=== PATIENT | female | born 1985 | race Caucasian/White ===

== ENCOUNTER 2019-12-16 07:37 | Outpatient (CLI) | payer OTHER, SELFPAY ==
--- NOTE | ~2019-12-16 | NM_ITS ---
. EXAMINATION: NM hepatobiliary w pharm DATE: 12/16/2019 10:22 INDICATION: Right upper quadrant abdominal pain. COMPARISON: CT abdomen and pelvis 11/04/2019 TECHNIQUE: 5.2 mCi Tc-99m mebrofenin (Choletec) was administered intravenously. Scintigraphic images of the abdomen were obtained for one hour. Then, 1.6 mcg sincalide (Kinevac) IV was administered, an d imaging was continued for 30 minutes. FINDINGS: There is normal clearance of radiotracer from the blood pool. There is homogeneous tracer u ptake by the liver. Activity progresses to the bowel and gallbladder. Gallbladder ejection fraction (GBEF) was 40%. Note that most patients with gallbladder dysfunction have GBEF < 35%, which overlaps with the broad normal range of 10-90%. IMPRESSION: 1. Normal hepatobiliary scintigraphy. Reviewed, dictated and finalized at location A. ER VEGETABLE
== END 2019-12-16 07:38 | disposition home or self-care (01) ==
LOC: CHSIMG 07:42
PROVIDERS: PCP Internal Medicine; Visit Provider Internal Medicine
DX: R10.11 Right upper quadrant pain (principal)
CPT/HCPCS: 78227; A9537; J2805

== ENCOUNTER 2020-01-05 09:08 | Outpatient (CLI) | payer OTHER, SELFPAY ==
--- NOTE | ~2020-01-05 | CT_ITS ---
EXAMINATION: CT abdomen pelvis w con EXAM DATE: 01/05/2020 10:18 INDICATION: Nausea vomiting diarrhea, postprandial. Symptoms for a few months. TECHNIQUE: Spiral CT of the abdomen and pelvis was performed following intravenous injection of 100 m L Omnipaque 350. Axial, coronal and sagittal images were reviewed. The dose-length product (DLP) fo r this examination was 532.60 mGy-cm. The exposure was tailored according to patient size (auto mA e xposure control), and iterative reconstruction (ASIR) was used as additional dose reduction technique . Comparison is made to prior examination from 11/04/2019. FINDINGS: The liver, spleen, adrenal glands and pancreas are unremarkable. Gallbladder is unremarkab le. No biliary obstruction. Portal and splenic veins are patent. Kidneys enhance symmetrically. T here is no hydronephrosis. The uterus and ovaries are unremarkable, no adnexal mass. The bladder i s unremarkable. There is no retroperitoneal or pelvic lymphadenopathy. The appendix is normal. The stomach and small bowel are unremarkable. There is moderate amount of c olonic stool. A No free intraperitoneal gas. The heart is normal in size. There are no pericardi al or pleural effusions. The lung bases are unremarkable. The bones are unremarkable. IMPRESSION: 1. No acute intra-abdominal findings. Reviewed, dictated and finalized at location A.
== END 2020-01-05 09:09 | disposition home or self-care (01) ==
PROVIDERS: PCP Internal Medicine; Visit Provider Internal Medicine
DX: R11.2 Nausea with vomiting, unspecified (principal)
CPT/HCPCS: 74177; Q9965

== ENCOUNTER → 2020-01-28 07:35 | Outpatient (CLI) | payer OTHER, SELFPAY ==
--- NOTE | ~2020-01-28 | US_ITS ---
US right upper quadrant DATE: 01/28/2020 08:23 INDICATION: Right upper quadrant abdominal pain, nausea. Elevated liver function tests. TECHNIQUE: Real-time imaging of liver, pancreas, gallbladder areas COMPARISON: 01/05/2020 CT abdomen pelvis with IV contrast material FINDINGS: No hepatic or pancreatic space-occupying mass lesion is evident. Normal hepatic portal veno us flow direction. There are numerous small filling defects averaging approximately 2 mm dimension in the dependent aspe ct of the gallbladder with associated shadowing. The gallbladder wall measures up to 4 mm thickness which they be consistent with either chronic or ac shannon cholecystitis. Negative sonographic Sánchez sign. IMPRESSION: Cholelithiasis and gallbladder wall thickening, which may be consistent with chronic or a cute cholecystitis cholecystitis. Consider radionuclide hepatobiliary scan if there is clinical suspi cion of acute cholecystitis. Reviewed, dictated and finalized at Location A. Reviewed, dictated and finalized at location A. IMPRESSION: Cholelithiasis and gallbladder wall thickening, which may be consis tent with chronic or acute cholecystitis cholecystitis. Consider radionuclide h epatobiliary scan if there is clinical suspicion of acute cholecystitis.
== END ==
DX: R74.8 Abnormal levels of other serum enzymes (principal); R10.11 Right upper quadrant pain; R11.0 Nausea; K80.20 Calculus of gallbladder without cholecystitis without obstruction
CPT/HCPCS: 76705

== ENCOUNTER 2020-04-01 05:35 | Emergency (ER) | payer MEDICAID, SELFPAY ==
[2020-04-01 05:35] VITALS: BP 122/68; PULSE 70; RESP 20; TEMP 36.2; O2SAT 100
[2020-04-01] MEDS: SODIUM CHLORIDE 0.9% IV 1,000 ML 999 ML IV CONT (06:19)
[2020-04-01] MEDS: ONDANSETRON INJ 4 MG/2 ML VIAL IV PUSH (06:19)
--- NOTE | 2020-04-01 06:20 | ED.ABDPAIN ---
HPI - Abdominal Pain General Chief Complaint: Abdominal Pain Stated Complaint: Gall Bladder Source: patient Mode of arrival: ambulatory Limitations: no limitations History of Present Illness HPI narrative: this is a 34-year-old female that is 14 weeks with a recently diagnosed history of gallbladder with gallstones was seeing a surgeon at [facility], and at that time was was given the option to have surgery after her . Currently the patient presents with right upper quadrant pain similar to her gallbladder attacks currently rating her pain at about a 5/10 with some nausea and episodes of vomiting with no diarrhea constipation no chest pain no fever chills. Patient did take Tylenol prior to arrival here in the emergency department and it is starting to take affect and decreasing her pain level. MD elicited complaint: abdominal pain Pertinent past history: other ( Gallstones) Onset (ago): month(s) Pain Consistency: intermittent Location: RUQ Severity: moderate Pain scale (0-10): 5 Quality: aching Radiation: RUQ Migration to: no migration Exacerbating factors: nothing Relieving factors: vomiting Associated symptoms: nausea and vomiting Related Data Allergies Allergy/AdvReac Type Severity Reaction Status Date / Time cefaclor Allergy Mild RASH Verified 02/24/17 19:44 Review of Systems Review of Systems: All systems reviewed & are unremarkable except as noted in HPI and below PMFSH Past Medical History Medical History History of gallstones PCO (polycystic ovaries) Social History Social History Smoking status: Never smoker Alcohol intake: never Course Course Emergency Course: patient appears more comfortable is receiving IV fluids and and IV Zofran, and heart tones were 136 beats per minute. Vital Signs Vital signs: Vital Signs Temperature 36.2 C L 04/01/20 05:35 Pulse Rate 70 04/01/20 05:35 Respiratory Rate 20 04/01/20 05:35 Blood Pressure 122/68 04/01/20 05:35 Pulse Oximetry 100 04/01/20 05:35 Temperature 36.2 C L 04/01/20 05:35 Pulse Rate 70 04/01/20 05:35 Respiratory Rate 20 04/01/20 05:35 Blood Pressure 122/68 04/01/20 05:35 Pulse Oximetry 100 04/01/20 05:35 Critical Care Time Critical Care Time Critical Care Time: No Discharge Plan Discharge Clinical Impression: History of gallstones Nausea & vomiting Qualifiers: Vomiting type: unspecified Vomiting Intractability: non-intractable Qualified Code(s): R11.2 - Nausea with vomiting, unspecified Patient Disposition: Home, Self-Care Condition: Stable Instructions: Antibiotic Form, Gallstones (ED), Acute Nausea and Vomiting (ED) Additional Instructions: Advised patient to take medicine as prescribed, follow-up with her surgeon at [facility], drink plenty of fluids and if symptoms persist or worsen he should return to the emergency department. Prescriptions: New ondansetron HCl [Zofran] 4 mg tablet 4 mg PO Q6H PRN (Reason: nausea and vomiting) Qty: 10 RF: 0 No Action ondansetron HCl [Zofran] 4 mg tablet 4 mg PO Q6H PRN (Reason: nausea and vomiting) Qty: 6 RF: 0 Follow-up/Referrals: Garry Pate MD [Primary Care Provider] - Stand Alone Forms: Work/School Release IP Time of Disposition: 07:02
[2020-04-01 06:29] LABS: Hematocrit 32.4 % (35.0-49.0); Hemoglobin 11.6 g/dL (12.0-15.0); Mean Corpuscular HGB Conc 35.8 g/dL (32.0-36.0); Mean Corpuscular Hemoglobin 30.3 pg (27.0-31.0); Mean Corpuscular Volume 84.6 fL (78.0-102.0); Mean Platelet Volume 9.8 fl (9.2-11.8); Platelet Count Result 230 K/mm3 (150-420); Red Blood Count 3.83 M/mm3 (4.20-5.40); Red Cell Distribution Width 12.7 % (11.6-14.4); White Blood Count 6.9 K/mm3 (4.8-10.8)
[2020-04-01 06:55] LABS: Alanine Aminotransferase 198 U/L (14-59); Albumin Level 2.9 g/dL (3.4-5.0); Alkaline Phosphatase 90 U/L (46-116); Anion Gap 11.6 mmol/L (7-16); Aspartate Amino Transferase 280 U/L (15-37); Bilirubin,Total 2.6 mg/dL (0.00-1.00); Blood Urea Nitrogen 6 mg/dL (7-18); Calcium 8.4 mg/dL (8.5-10.1); Carbon Dioxide 25 mmol/L (21-32); Chloride 102 mmol/L (98-108); Estimated CRCL calculation 111 ml/min; Estimated Glomerular Filt Rate > 60; Glucose 81 mg/dL (70-99); Osmolality Calculated 276 mOsm/kg (285-295); Potassium 3.6 mmol/L (3.5-5.1); Sodium 135 mmol/L (136-145); Total Protein 6.6 g/dL (6.4-8.2)
[2020-04-01 07:10] VITALS: BP 106/56; PULSE 72; RESP 20; O2SAT 97
== END 2020-04-01 07:11 | disposition home or self-care (01) ==
PROVIDERS: Emergency Provider Emergency Medicine; PCP Internal Medicine
DX: K80.80 Other cholelithiasis without obstruction (principal); R11.2 Nausea with vomiting, unspecified
CPT/HCPCS: 36415; 80053; 85027; 96361; 96374; 99283; 99284; J2405; J7030

== ENCOUNTER 2020-04-02 | Emergency (ER) | payer MEDICAID, SELFPAY ==
--- NOTE | 2020-04-02 00:09 | ED.ABDPAIN ---
HPI - Abdominal Pain General Chief Complaint: Unspecified Stated Complaint: Gallbladder Problems Time Seen by Provider: 04/02/20 00:17 Source: patient Mode of arrival: ambulatory Limitations: no limitations History of Present Illness HPI narrative: 34-year-old woman in her 14th week of comes in today complaining of bilateral flank pain. Patient states that started 2 days ago and was associated with nausea and vomiting at onset. She was seen here this morning and given IV fluids and ondansetron which improved her symptoms and she was unable to follow-up with her OB Gyne doctor today. She states her pain is gotten worse over the course of the evening. She states that she has had no vaginal bleeding but has her typical creamy vaginal discharge. she states the pain is worse when she takes deep breath. She had dysuria 2 days ago but none since. She denies hematuria, diarrhea, rash, fever, chills, cough, cold symptoms, chest pain and injury. MD elicited complaint: abdominal pain Pertinent past history: other ( History of gallstones) Onset (ago): day(s) (2) Pain Consistency: intermittent Location: L flank, R flank and suprapubic Severity: moderate Quality: sharp Radiation: none Migration to: no migration Exacerbating factors: other ( worse with taking a deep breath.) Relieving factors: nothing Associated symptoms: nausea, vomiting and dysuria Related Data Date of Last Menstrual Period: 12/26/19 Patient : Yes Home Medications Medication Instructions Recorded Confirmed acetaminophen [Tylenol Extra 500 mg PO Q6H PRN 04/02/20 04/02/20 Strength] phenazopyridine [Azo Urinary Pain 95 mg PO TID PRN 04/02/20 04/02/20 Relief] Allergies Allergy/AdvReac Type Severity Reaction Status Date / Time cefaclor Allergy Mild RASH Verified 02/24/17 19:44 Review of Systems Constitutional: Constitutional: Denies chills, Denies fever(s) and Denies weakness Eyes: Eyes: Denies change in vision and Denies photophobia ENT: Denies dysphagia, Denies nasal congestion and Denies sore throat Cardiovascular: Cardiovascular: Denies chest pain and Denies radiating jaw, neck or arm pain Respiratory: Respiratory: Denies cough, Denies dyspnea and Denies wheezing Gastrointestinal: Gastrointestinal: Reports as per HPI, Reports abdominal pain, Reports constipation, Denies diarrhea, Reports nausea and Reports vomiting Genitourinary: Genitourinary: Denies hematuria, Denies nocturia, Reports dysuria, Reports flank pain and Denies urinary incontinence Musculoskeletal: Musculoskeletal: Denies arthralgias and Denies joint swelling Integumentary/Breasts: Skin/Breast: Denies pruritus, Denies erythema and Denies rash Neurologic: Denies vertigo, Denies dizziness, Denies syncope, Denies headache(s), Denies focal weakness and Denies numbness Hematologic/Lymphatic: Hematologic/Lymphatic: Denies easy bleeding and Denies easy bruising Allergic/Immunologic: Allergic/Immunologic: Denies lip swelling and Denies wheezing PMFSH Past Medical History Medical History (Updated 04/02/20 @ 02:03 by Herson Jorge MD) Graves disease History of gallstones PCO (polycystic ovaries) Social History Social History Smoking status: Never smoker Alcohol intake: never Gender identity (if verbalized by the patient): Female Sexual Orientation (if Verbalized by the Patient): Straight or Heterosexual Exam Const: General: healthy appearing and alert Nutritional Appearance: obese Orientation/consciousness: patient oriented x3 Limitations: no limitations Other: Moderate acute distress. HENMT: Ears: external ears normal, TM's normal bilaterally and EAC's normal Mouth: Yes moist mucous membranes Throat: posterior oropharynx normal Eyes: Conjunctivae: conjunctivae normal Pupils: Equal, round and reactive pupils present EOM: EOMs intact bilaterally Direct Ophthalmoscopy: No
[2020-04-02 00:10] VITALS: BP 129/80; PULSE 64; RESP 18; TEMP 36.4; O2SAT 100
--- NOTE | 2020-04-02 00:31 | PC.NURSE ---
no nausea, no vomitting no diarrhea.
--- NOTE | 2020-04-02 00:42 | PC.NURSE ---
laughing talking to staff & on cellphone
--- NOTE | 2020-04-02 00:57 | PC.NURSE ---
vaginal exam performed by
[2020-04-02 01:02] LABS: Basophils Absolute Auto 0.03 K/mm3 (0.00-0.10); Basophils Percent Auto 0.4 % (0.0-1.0); Eosinophils Absolute Auto 0.09 K/mm3 (0.02-0.50); Eosinophils Percent Auto 1.2 % (1.0-6.0); Hematocrit 34.2 % (35.0-49.0); Hemoglobin 11.9 g/dL (12.0-15.0); Immature Granulocyte Absolute 0.07 K/mm3 (0.00-0.00); Lymphocytes Absolute Auto 2.04 K/mm3 (1.10-4.50); Lymphocytes Percent Auto 28.2 % (18.0-42.0); Mean Corpuscular HGB Conc 34.8 g/dL (32.0-36.0); Mean Corpuscular Hemoglobin 29.8 pg (27.0-31.0); Mean Corpuscular Volume 85.7 fL (78.0-102.0); Mean Platelet Volume 9.9 fl (9.2-11.8); Monocytes Absolute Auto 0.47 K/mm3 (0.10-0.90); Monocytes Percent Auto 6.5 % (2.0-11.0); Neutrophils Absolute Auto 4.5 K/mm3 (1.7-7.2); Neutrophils Percent Auto 62.7 % (50.0-70.0); Platelet Count Result 257 K/mm3 (150-420); Red Blood Count 3.99 M/mm3 (4.20-5.40); Red Cell Distribution Width 12.8 % (11.6-14.4); White Blood Count 7.2 K/mm3 (4.8-10.8)
[2020-04-02] MEDS: SODIUM CHLORIDE 0.9% IV 1,000 ML 999 ML IV CONT (01:06)
[2020-04-02 01:09] LABS: Add Urine Microscopic? YES; Appearance Urine Clear (Clear); Bilirubin Urine 2+ (Negative); Blood Urine Negative (Negative); Color Urine Yellow (Yellow); Glucose Urine UA Negative (Negative); Ketones Urine 1+ (Negative); Leukocyte Esterase Ur Trace LEU/UL (Negative); Nitrate Urine Negative (Negative); Protein Urine Negative (Negative)
[2020-04-02 01:20] LABS: Bacteria Urine 1+ /hpf; RBC Urine 0-2 /hpf (0-2); Squamous Epithelial Cell Urine Rare /hpf (Few); WBC Urine 0-3 /hpf (0-3)
[2020-04-02] MEDS: ACETAMINOPHEN 500 MG TABLET 1000 MG PO (01:25)
[2020-04-02 01:33] LABS: Alanine Aminotransferase 222 U/L (14-59); Alkaline Phosphatase 103 U/L (46-116); Anion Gap 14.5 mmol/L (7-16); Aspartate Amino Transferase 193 U/L (15-37); Bilirubin,Total 3.1 mg/dL (0.00-1.00); Blood Urea Nitrogen 6 mg/dL (7-18); Calcium 8.3 mg/dL (8.5-10.1); Carbon Dioxide 23 mmol/L (21-32); Chloride 102 mmol/L (98-108); Estimated CRCL calculation 86 ml/min; Estimated Glomerular Filt Rate > 60; GGT 95 U/L (5-55); Glucose 79 mg/dL (70-99); Lipase 122 U/L (73-393); Osmolality Calculated 278 mOsm/kg (285-295); Potassium 3.5 mmol/L (3.5-5.1); Sodium 136 mmol/L (136-145); Total Protein 6.8 g/dL (6.4-8.2)
[2020-04-02 01:39] LABS: Amylase 44 U/L (25-115); Beta HCG Quantitative > 1000.00 mIU/mL (0-6)
[2020-04-02 02:14] VITALS: BP 122/60; PULSE 77; RESP 18; TEMP 36.3
== END 2020-04-02 02:14 | disposition home or self-care (01) ==
PROVIDERS: Emergency Provider Emergency Medicine; PCP Internal Medicine
DX: R10.9 Unspecified abdominal pain (principal); Z33.1 Pregnant state, incidental; E80.6 Other disorders of bilirubin metabolism
CPT/HCPCS: 36415; 80053; 81001; 82150; 82977; 83690; 84702; 85025; 86850; 86900; 86901; 96360; 99283; 99284; J7030

== ENCOUNTER 2020-04-04 13:39 | Outpatient (CLI) | payer MEDICAID, SELFPAY ==
[2020-04-04 14:16] LABS: Hematocrit 34.5 % (37.0-47.0); Hemoglobin 12.4 g/dL (12.0-15.0); Mean Corpuscular HGB Conc 35.9 g/dl (32-36); Mean Corpuscular Volume 83.5 fl (80-100); Mean Platelet Volume 9.6 fl (7.4-10.4); Platelet Count Result 257 k/mm3 (150-375); Red Blood Count 4.13 M/mm3 (4.2-5.4); Red Cell Distribution Width 12.6 % (11.5-14.5); White Blood Count 8.1 K/mm3 (4.5-10.0)
[2020-04-04 14:27] LABS: Alanine Aminotransferase 117 U/L (4-35); Albumin Level 4.1 g/dL (3.5-5.1); Alkaline Phosphatase 128 U/L (38-126); Aspartate Amino Transferase 49 U/L (14-36); Bilirubin,Total 3.8 mg/dL (0.2-1.3); Blood Urea Nitrogen 9 mg/dL (7-17); Carbon Dioxide 22 mmol/L (22-30); Chloride 103 mmol/L (98-107); Estimated Glomerular Filt Rate > 60; Glucose 80 mg/dL (65-105); Sodium 134 mmol/L (137-145)
== END 2020-04-04 13:40 | disposition home or self-care (01) ==
PROVIDERS: PCP Internal Medicine; Visit Provider Obstetrics & Gynecology
DX: K80.20 Calculus of gallbladder without cholecystitis without obstruction (principal)
CPT/HCPCS: 36415; 80053; 85027

== ENCOUNTER 2020-05-06 15:20 | Emergency (ER) | payer BC, SELFPAY ==
--- NOTE | ~2020-05-06 | XR_ITS ---
EXAMINATION: XR chest 1V portable DATE: 05/06/2020 16:10 INDICATION: Cough. TECHNIQUE: A single frontal view of the chest was obtained. COMPARISON: Chest 2 views 04/06/2016, CT abdomen and pelvis 01/05/2020 FINDINGS: The chest demonstrates clear lungs without pneumonia, pleural effusion, or pneumothorax. Th e heart size is normal. IMPRESSION: 1. No acute cardiopulmonary disease. Reviewed, dictated and finalized at location A.
--- NOTE | ~2020-05-06 | US_ITS ---
US venous doppler [facility] DATE: 05/06/2020 16:33 INDICATION: Cough, shortness of breath. Recent surgery. Patient is . TECHNIQUE: Real-time and color flow imaging and Doppler analysis of the veins of the lower extremitie s COMPARISON: None FINDINGS: The greater saphenous veins are patent. There is spontaneous and phasic flow and normal aug mentation and color flow signal and normal compression of the deep veins of both lower extremities. IMPRESSION: Negative examination; no evidence of deep venous thrombosis of the lower extremities Reviewed, dictated and finalized at Location A. Reviewed, dictated and finalized at location A.
[2020-05-06 15:28] VITALS: BP 125/88; PULSE 96; RESP 18; TEMP 37.1; O2SAT 100
--- NOTE | 2020-05-06 15:33 | ED.GENADULT ---
HPI - General Adult General Chief complaint: Unspecified Stated complaint: Cough, 18 weeks preg Time Seen by Provider: 05/06/20 15:33 Source: patient Limitations: no limitations History of Present Illness HPI narrative: Patient is a G3, P2, currently 19 weeks who presents for evaluation of cough and shortness of breath. Patient states that she had cholecystectomy in March, bile stent removal about a week ago, and since that time has had a sore throat, at times a dry cough and some shortness of breath which occurs with exertion. No current chest pain or shortness of breath. No pleuritic pain. No leg swelling, calf pain, rash that she has noticed. No history of DVT. Patient reports feeling baby move, no loss of fluids, vaginal discharge, vaginal bleeding, pelvic pain or abdominal cramping., No fever, chills or hemoptysis. No rhinorrhea or congestion. Related Data Home Medications Medication Instructions Recorded Confirmed PNV cmb#95-ferrous fumarate-FA 1 tablet PO DAILY 05/06/20 [] Allergies Allergy/AdvReac Type Severity Reaction Status Date / Time cefaclor Allergy Mild RASH Verified 05/06/20 15:28 Review of Systems Review of Systems: Narrative: CONSTITUTIONAL: Denies fever CARDIOVASCULAR: Denies chest pain RESPIRATORY: Reports dry cough and shortness of breath. GASTROINTESTINAL: Denies abdominal pain SKIN: Denies rash MUSCULOSKELETAL: Denies back pain NEUROLOGIC: Denies headache [facility] Past Medical History Medical History Graves disease History of gallstones PCO (polycystic ovaries) Social History Social History Smoking status: Never smoker Alcohol intake: never Gender identity (if verbalized by the patient): Female Exam Narrative: Exam Narrative: GENERAL: Awake, alert, conversant HEAD: Normocephalic, atraumatic. EYES: PERRLA and EOMI. ENT: Nares clear, no rhinorrhea or epistaxis. Mucous membranes moist. NECK: Supple. CHEST: No respiratory distress, breathing even and non labored, no chest wall tenderness HEART: Regular rate, sinus rhythm ABDOMEN:Non distended, non tender, gravid uterus palpable at the umbilicus EXTREMITIES: Normal range of motion. No edema. SKIN: Warm, dry, no rash. NEURO:No focal deficits. Alert and oriented x3 Course Vital Signs Vital signs: Vital Signs Temperature 37.1 C 05/06/20 15:28 Pulse Rate 96 05/06/20 15:28 Respiratory Rate 18 05/06/20 15:28 Blood Pressure 125/88 05/06/20 15:28 Pulse Oximetry 100 05/06/20 15:28 Temperature 37.1 C 05/06/20 15:28 Pulse Rate 96 05/06/20 15:28 Respiratory Rate 20 05/06/20 15:38 Blood Pressure 125/88 05/06/20 15:28 Pulse Oximetry 100 05/06/20 15:28 Medical Decision Making MDM Narrative Medical decision making narrative: Patient presented for evaluation of cough, shortness of breath in the setting of and recent surgery last month. At the time of initial assessment, ABCs are intact and vital signs are stable. Physical exam is reassuring. No calf tenderness, edema, warmth or rash bilaterally. No reproducible chest wall pain. No pleuritic type symptoms. IV access obtained and labs are drawn. Laboratory results show a mild leukocytosis which can be seen in the setting of . No electrolyte derangement. No acute kidney injury. D-dimer is not above a critical cutoff level which makes PE very unlikely in a patient who is not tachycardic without hypoxemia. Bilateral lower extremity ultrasound is negative for DVT. Per adapted year's criteria, we do not need to obtain a CTA. Patient's chest x-ray shows no acute cardiopulmonary abnormality. Patient does not have any COVID type features. No myalgias, no productive cough, no congestion. 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 Patient was then discharged home. Differential Diagno
[2020-05-06 15:38] VITALS: RESP 20
--- NOTE | 2020-05-06 15:43 | ECG_ITS ---
Measurements Intervals [place] Rate: 83 P: 21 TX: 133 QRS: 9 QRSD: 93 T: 1 QT: 362 QTc: 426 Interpretive Statements SINUS RHYTHM BORDERLINE T WAVE ABNORMALITY- INFERIOR LEADS BORDERLINE ECG Electronically Signed On 05-06-2020 16:55:41 CDT by Rivera Meraz D.O.
[2020-05-06 16:00] LABS: Basophils Absolute Auto 0.1 K/mm3 (0.0-0.1); Basophils Percent Auto 0.4 % (0.2-1.2); Eosinophils Absolute Auto 0.1 K/mm3 (0-0.3); Eosinophils Percent Auto 1.2 % (0-4.4); Hematocrit 30.3 % (37.0-47.0); Hemoglobin 10.7 g/dL (12.0-15.0); Immature Granulocyte Absolute 0.08 K/mm3 (0.00-0.031); Immature Granulocyte Percent A 0.7 % (0-0.5); Lymphocytes Absolute Auto 2.03 K/mm3 (0.9-3.2); Lymphocytes Percent Auto 17.5 % (18.3-44.2); Mean Corpuscular HGB Conc 35.3 g/dl (32-36); Mean Corpuscular Hemoglobin 29.7 pg (26-34); Mean Corpuscular Volume 84.2 fl (80-100); Mean Platelet Volume 9.6 fl (7.4-10.4); Monocytes Absolute Auto 0.6 K/mm3 (0.1-0.6); Monocytes Percent Auto 5.4 % (2.6-8.5); Neutrophils Absolute Auto 8.7 K/mm3 (1.3-6.7); Neutrophils Percent Auto 74.8 % (45.5-73.1); Platelet Count Result 218 k/mm3 (150-375); Red Cell Distribution Width 13.2 % (11.5-14.5); White Blood Count 11.6 K/mm3 (4.5-10.0)
[2020-05-06 16:14] LABS: INR 1.2; Prothrombin Time 14.6 Seconds (11.1-14.7)
[2020-05-06 16:15] LABS: Partial Thromboplastin Time 30.6 SECONDS (22.3-36.8)
[2020-05-06 16:23] LABS: Alanine Aminotransferase 10 U/L (4-35); Albumin Level 3.6 g/dL (3.5-5.1); Alkaline Phosphatase 69 U/L (38-126); Aspartate Amino Transferase 16 U/L (14-36); Bilirubin,Total 0.2 mg/dL (0.2-1.3); Blood Urea Nitrogen 8 mg/dL (7-17); Calcium 8.7 mg/dL (8.4-10.2); Carbon Dioxide 22 mmol/L (22-30); Chloride 106 mmol/L (98-107); Estimated CRCL calculation 156 ml/min; Estimated Glomerular Filt Rate > 60; Glucose 101 mg/dL (65-105); Potassium 3.5 mmol/L (3.4-5.0); Sodium 134 mmol/L (137-145)
[2020-05-06 16:34] LABS: NT Pro B Type Natriuretic Pept 70 PG/ML (5-100); Troponin I < 0.012 ng/mL (0.000-0.034)
[2020-05-06 17:15] VITALS: BP 122/80; PULSE 90; RESP 20; O2SAT 100
[2020-05-07 14:21] LABS: SARS-CoV-2 RNA PCR Negative
== END 2020-05-06 17:17 | disposition home or self-care (01) ==
PROVIDERS: Emergency Provider Emergency Medicine; PCP Internal Medicine
DX: O26.892 Other specified pregnancy related conditions, second trimester (principal); R05 Cough; Z20.828 Contact with and (suspected) exposure to other viral communicable diseases; O99.282 Endocrine, nutritional and metabolic diseases complicating pregnancy, second trimester; E28.2 Polycystic ovarian syndrome; E05.00 Thyrotoxicosis with diffuse goiter without thyrotoxic crisis or storm; Z3A.19 19 weeks gestation of pregnancy; R94.31 Abnormal electrocardiogram [ECG] [EKG]
CPT/HCPCS: 36415; 71045; 80053; 83880; 84484; 85025; 85380; 85610; 85730; 87635; 93005; 93970; 99284; C9803; U0003

== ENCOUNTER 2020-09-27 05:49 | Inpatient (IN) | payer OTHER, SELFPAY ==
[2020-09-27] VITALS (201 sets, daily range): BP systolic 100–140; BP diastolic 52–102; PULSE 42–120; RESP 18–20; TEMP 36.6–37.2; O2SAT 82–100; BMI 34.9
--- NOTE | 2020-09-27 06:19 | WPDANESEPP ---
Anes - Eval Pre Procedure Procedure: labor epidural Date/Time: 09/27/20 06:19 Surgeon: tiffany Pre Op Diagnosis: Induction Patient Data Age: 34 Gender: F Height: Weight: Last Vital Signs Pulse 91 09/27/20 06:18 BP 126/86 09/27/20 06:18 Allergies Allergy/AdvReac Type Severity Reaction Status Date / Time cefaclor Allergy Mild RASH Verified 09/06/20 13:35 Home Medications Medication Instructions Recorded Confirmed Type PNV cmb#95-ferrous fumarate-FA 1 tablet PO DAILY 05/06/20 History [] valacyclovir 1,000 mg PO Q12H 09/06/20 09/06/20 History Patient hx anesthesia problems: none Family hx anesthesia problems: none PMFSH Past Medical History Medical History (Updated 05/07/20 @ 00:00 by Eri Avila) Graves disease History of gallstones PCO (polycystic ovaries) Family History Family History (Updated 09/06/20 @ 13:41 by Brad Thompson RN) Father Family history of alcoholism Depression Sibling Family history of alcoholism Mother Family history of migraine headaches Sleep apnea Grandparent Pancreas carcinoma Social History Social History Smoking status: Never smoker Alcohol intake: never Substance use: never Gender identity (if verbalized by the patient): Female Spiritual care concerns: No Exam Day of Procedure 09/27/20 06:19
[2020-09-27] MEDS: OXYTOCIN 30 UNITS/NS 500 ML 30 UNITS/500 ML BAG IV CONT (06:52)
[2020-09-27] MEDS: LACTATED RINGERS 1,000 ML 125 ML IV CONT ×4 (06:53→18:58)
--- NOTE | 2020-09-27 07:05 | LDADM ---
This patient, Deanna Bautista, was admitted to Labor/Delivery/Recovery 103 on 09/27/20 at 05:49. Plans for labor, pain management and were discussed with patient. Patient/family oriented to hospital policies and general routines including ID bracelet, bed and alarms, visiting hours, pain management, procedures, bathroom and other care routines, personal items, smoking policy, room service/diet and guest tray routines, infant security routines, and visiting hours. Patient/Family are encouraged to report perceived risks to care and to ask questions if they do not understand what they are told or what they should do. See OBIX for further documentation.
[2020-09-27 07:55] LABS: Basophils Percent Auto 0.4 % (0.2-1.2); Eosinophils Absolute Auto 0.2 K/mm3 (0-0.3); Eosinophils Percent Auto 1.5 % (0-4.4); Hematocrit 33.4 % (37.0-47.0); Hemoglobin 10.8 g/dL (12.0-15.0); Immature Granulocyte Absolute 0.12 K/mm3 (0.00-0.031); Immature Granulocyte Percent A 1.1 % (0-0.5); Lymphocytes Absolute Auto 1.91 K/mm3 (0.9-3.2); Lymphocytes Percent Auto 18.2 % (18.3-44.2); Mean Corpuscular HGB Conc 32.3 g/dl (32-36); Mean Corpuscular Hemoglobin 26.5 pg (26-34); Mean Corpuscular Volume 81.9 fl (80-100); Mean Platelet Volume 10.6 fl (7.4-10.4); Monocytes Absolute Auto 0.6 K/mm3 (0.1-0.6); Monocytes Percent Auto 5.8 % (2.6-8.5); Neutrophils Absolute Auto 7.7 K/mm3 (1.3-6.7); Platelet Count Result 225 k/mm3 (150-375); Red Blood Count 4.08 M/mm3 (4.2-5.4); Red Cell Distribution Width 13.9 % (11.5-14.5); White Blood Count 10.5 K/mm3 (4.5-10.0)
--- NOTE | 2020-09-27 08:45 | WPDOBADMIT ---
Obstetrics - Admit Note Admission Note: record reviewed. Additions to the history and/or subsequent changes in the physical findings follow. 34 y/o at 39 3/7 weeks here for scheduled induction of labor. GBS neg. Irregular contractions. No leakage of fluid or vaginal bleeding. AVSS NST reactive TOCO: irregular contractions ABD soft, nontender, gravid, vertex EXT nontender Cervix 2-3/50/-2. AROM with clear fluid. Vertex. A: IUP at term with favorable cervix, desiring induction of labor. P: Oxytocin. Anticipate .
--- NOTE | 2020-09-27 12:30 | PM.OBPNLAB ---
Pain Control Date/time seen: 09/27/20 13:04 Comments: Comfortable with epidural. Pelvic Exam Dilation (cm): 3 Effacement (%): 50 station: -2 Contractions Contraction frequency: 3 Contraction pattern: Regular Status Comments: NST good variability Assessment and Plan Comments: Continue labor.
--- NOTE | 2020-09-27 15:11 | PM.OBPNLAB ---
Pain Control Date/time seen: 09/27/20 15:11 Pelvic Exam Dilation (cm): 3 Effacement (%): 50 station: -2 Contractions Contraction frequency: 3 Contraction pattern: Regular Status Comments: FHR good variability Assessment and Plan Comments: Continue labor.
--- NOTE | 2020-09-27 17:05 | PM.OBPNLAB ---
Pain Control Date/time seen: 09/27/20 17:05 Pelvic Exam Dilation (cm): 4 Effacement (%): 50 station: -2 Contractions Contraction frequency: 3 Contraction pattern: Regular Status status: Category l Comments: Reactive Assessment and Plan Comments: Continue labor
[2020-09-27] MEDS: ONDANSETRON INJ 4 MG/2 ML VIAL IV PUSH (17:47)
[2020-09-27] MEDS: diphenhydrAMINE HCl INJ 50 MG/ML VIAL 25 MG IV PUSH (22:56)
[2020-09-28] VITALS (260 sets, daily range): BP systolic 102–147; BP diastolic 60–111; PULSE 69–118; RESP 14–20; TEMP 36.9–37.9; O2SAT 92–100
[2020-09-28] MEDS: AMPICILLIN 2 GM/NS 100 ML 2 GM/100 ML BAG IVPB (02:29)
[2020-09-28] MEDS: AMPICILLIN 1 GM/NS 50 ML 1 GM/50 ML BAG IVPB ×2 (06:35→10:08)
--- NOTE | 2020-09-28 08:48 | PM.OBPNLAB ---
Pain Control Date/time seen: 09/28/20 08:48 Comments: Still comfortable with epidural. Receiving ampicillin. Pelvic Exam Dilation (cm): 5 Effacement (%): 80 station: -1 Contractions Contraction frequency: 3 Contraction pattern: Regular Status status: Category l Assessment and Plan Comments: Continue labor.
[2020-09-28] MEDS: LACTATED RINGERS 1,000 ML 125 ML IV CONT (12:12)
--- NOTE | 2020-09-28 12:20 | PM.OBPNLAB ---
Pain Control Date/time seen: 09/28/20 12:20 Comments: Feeling more pressure Pelvic Exam Dilation (cm): 8 Effacement (%): 80 station: -1 Contractions Contraction frequency: 3 Contraction pattern: Regular Status status: Category l Assessment and Plan Comments: Continue labor.
[2020-09-28 13:33] LABS: Rapid Plasma Reagin Non-Reactive (NonReactive)
--- NOTE | 2020-09-28 13:51 | PM.IMHP ---
H&P: HPI History of Present Illness Date/Time: 09/28/20 13:51 Chief complaint: Induction Narrative: 34 y/o at 39 4/7 weeks here for induction of labor. Has had very slow progress in labor. Over the last several hours she has had adequate contractions based on IUPC monitoring and has not had any change in her cervical exam. Tc is 100.2F. Review of Systems Review of Systems: All systems reviewed & are unremarkable except as noted in HPI and below PMFSH Past Medical History Medical History (Updated 09/28/20 @ 13:54 by Salomón Mendez MD) Graves disease History of gallstones PCO (polycystic ovaries) Family History Family History Father Family history of alcoholism Depression Sibling Family history of alcoholism Mother Family history of migraine headaches Sleep apnea Grandparent Pancreas carcinoma Social History Social History Smoking status: Never smoker Alcohol intake: never Substance use: never Gender identity (if verbalized by the patient): Female Spiritual care concerns: No Meds Home Medications and Allergies Home Medications Medication Instructions Recorded Confirmed Type PNV cmb#95-ferrous fumarate-FA 1 tablet PO DAILY 05/06/20 09/27/20 History [] Allergies Allergy/AdvReac Type Severity Reaction Status Date / Time cefaclor Allergy Mild RASH Verified 09/06/20 13:35 Vital Signs Vital Signs - 24 hr 09/27/20 13:56 09/27/20 14:00 09/27/20 14:01 Temperature Pulse Rate 83 Respiratory Rate Blood Pressure 119/68 Pulse Oximetry 97 98 09/27/20 14:06 09/27/20 14:07 09/27/20 14:11 Temperature 36.6 C Pulse Rate Respiratory Rate Blood Pressure Pulse Oximetry 99 100 09/27/20 14:16 09/27/20 14:21 09/27/20 14:26 Temperature Pulse Rate Respiratory Rate Blood Pressure Pulse Oximetry 98 97 99 09/27/20 14:30 09/27/20 14:31 09/27/20 14:36 Temperature Pulse Rate 82 Respiratory Rate Blood Pressure 121/71 Pulse Oximetry 98 98 09/27/20 14:41 09/27/20 14:46 09/27/20 14:51 Temperature Pulse Rate Respiratory Rate Blood Pressure Pulse Oximetry 98 100 97 09/27/20 14:56 09/27/20 15:00 09/27/20 15:01 Temperature Pulse Rate 87 Respiratory Rate Blood Pressure 115/60 Pulse Oximetry 98 99 09/27/20 15:06 09/27/20 15:11 09/27/20 15:16 Temperature Pulse Rate Respiratory Rate Blood Pressure Pulse Oximetry 98 100 99 09/27/20 15:21 09/27/20 15:26 09/27/20 15:30 Temperature Pulse Rate 68 Respiratory Rate Blood Pressure 117/67 Pulse Oximetry 100 100 09/27/20 15:31 09/27/20 15:36 09/27/20 15:41 Temperature Pulse Rate Respiratory Rate Blood Pressure Pulse Oximetry 99 99 99 09/27/20 15:46 09/27/20 15:50 09/27/20 15:55 Temperature Pulse Rate Respiratory Rate Blood Pressure Pulse Oximetry 98 85 L 82 L 09/27/20 16:00 09/27/20 16:01 09/27/20 16:05 Temperature 37.1 C Pulse Rate 95 Respiratory Rate Blood Pressure 117/78 Pulse Oximetry 84 L 83 L 09/27/20 16:10 09/27/20 16:15 09/27/20 16:20 Temperature Pulse Rate Respiratory Rate Blood Pressure Pulse Oximetry 91 91 92 09/27/20 16:25 09/27/20 16:28 09/27/20 16:30 Temperature Pulse Rate 72 Respiratory Rate Blood Pressure 116/64 Pulse Oximetry 91 98 09/27/20 16:33 09/27/20 16:38 09/27/20 16:43 Temperature Pulse Rate Respiratory Rate Blood Pressure Pulse Oximetry 99 99 100 09/27/20 16:47 09/27/20 16:52 09/27/20 16:56 Temperature Pulse Rate Respiratory Rate Blood Pressure Pulse Oximetry 100 98 98 09/27/20 17:01 09/27/20 17:08 09/27/20 17:13 Temperature Pulse Rate 94 Respiratory Rate Blood Pressure 121/81 Pulse Oximetry 100 99 99
--- NOTE | 2020-09-28 13:55 | PM.OBPNLAB ---
Pain Control Date/time seen: 09/28/20 13:55 Comments: Good pain control. Pelvic Exam Dilation (cm): 8 Effacement (%): 80 station: -1 Comments: Unchanged. Contractions Contraction frequency: 3 Contraction pattern: Regular Status status: Category l Assessment and Plan Comments: A: Arrest of dilation in labor. P: Offered primary . She understands risks of surgery to include risks of anesthesia, risks of pain, infection, bleeding, blood products, thromboembolic phenomena and damage to adjacent structures such as bowel, bladder, ureters, blood vessels and nerves. She understands all these risks and elects to proceed with surgery.
--- NOTE | 2020-09-28 15:09 | PM.OBPRVD ---
OB - Delivery Note Procedure Delivery date: 09/28/20 Procedure: Procedures Operation Date: 09/28/20 14:00 <No data on this case meets the specified criteria> Primary low transverse delivery Induction method: AROM and per pitocin protocol Delivery augmentation: pitocin Delivery monitor: external FHT, external uterine and internal uterine Route of delivery: (LTCS) Indication for instrumentation: other (Arrest of dilation) Specimen: Yes (cord blood, placenta) Quantitative Blood Loss (ml): 605 Anesthesia type: Epidural Disposition: PACU Complications: None Narrative: The patient was taken to the operating room where she was prepared and draped in the usual sterile fashion in dorsal supine position with a leftward tilt. She received cefazolin preoperatively. Spinal anesthesia was found to be adequate. A Pfannenstiel skin incision was made and carried through to the underlying layer of the fascia. The fascia was incised in the midline and the incision was extended laterally. The fascia was dissected free of the underlying rectus muscles. The rectus muscles were in the midline. The peritoneum was identified, tented up and entered sharply. The peritoneal incision was extended superiorly and inferiorly with good visualization of the bladder. The bladder blade was placed. The vesicouterine peritoneum was identified, tented up and entered sharply. The incision was extended laterally and the bladder flap was developed. The bladder blade was replaced. The uterus was then incised sharply in a transverse fashion along the lower uterine segment. The incision was extended laterally. The infant's head was delivered atraumatically to the sterile field, followed by the body. The nose and mouth were bulb suctioned. After a delay, the cord was clamped and cut. The infant was handed off the field. Cord blood was collected. The placenta was removed manually and was passed off the field. The uterus was exteriorized and cleared of all clots and debris. The uterine incision was reapproximated using 0 Monocryl in a running, locked fashion. A second, imbricating layer of the same suture was placed in a running fashion. Excellent hemostasis resulted as did excellent reapproximation of the normal anatomy. The uterus was returned the abdomen. The pelvis was irrigated copiously with warmed normal saline. The bladder flap was treated withi Hemaderm. Rigorous hemostasis was assured. The fascial layer was reapproximated using 0 Vicryl in a running fashion. The skin was closed with a running, subcuticular stitch of 4 0 Vicryl. Dermaflex was applied externally. Sponge, lap, needle and instrument counts were correct. The patient was taken to the recovery room in stable condition. The infant went to the nursery in stable condition. I was present and scrubbed the entire procedure. Baby Date of : 09/28/20 Time of : 14:31 Weeks of gestation at delivery: 39 Infant gender: Male Weight (pounds): 7 Weight (ounces): 11 presentation: vertex position: Left Occiput Transverse Placenta delivery description: Manual Removal and Normal Configuration cord vessel description: 3 Vessels score one minute: 2 score five minutes: 8
--- NOTE | 2020-09-28 15:16 | P.DS_ITS ---
DS: Admitting Diagnosis Admitting Diagnosis Admitting Diagnosis: IUP at term DS: Discharge Diagnosis Discharge Diagnosis (1) Arrested active labor, delivered, current hospitalization: Code(s): O62.1 - Secondary uterine inertia Status: Acute OB - DS: Summary OB Procedures : None OB Procedures Intrapartum: OB Procedures: : None Peripartum Data Procedures: Procedures Operation Date: 09/28/20 14:00 <No data on this case meets the specified criteria> Primary Low Transverse Delivery DS: Data Data Completed and Pending Labs on day of discharge: Labs from last 24 hours 09/27/20 06:34 RPR Non-reactive Discharge Plan Discharge Attending physician on discharge: Salomón Mendez Discharging Clinician: Andrea Patient Disposition: Home, Self-Care Activity: may shower, may drive after 2 weeks and pelvic rest Diet: regular Wound Care Instructions: incision open to air Discharge Instructions: Call or return if temperature above 100.4? F, increased abdominal pain, increased vaginal bleeding or any new problems. Stand Alone Forms: General Discharge Information Follow-up/Referrals: Salomón Mendez MD [Physician] - 4 Weeks Discharge Medications: New ibuprofen 600 mg tablet 600 mg PO Q6H PRN (Reason: cramps) Qty: 30 RF: 0 hydrocodone-acetaminophen [Gravel Switch] 5-325 mg tablet 1 - 2 tablet PO Q6H PRN (Reason: pain) Qty: 30 RF: 0 ferrous sulfate 325 mg (65 mg iron) tablet 325 mg PO DAILY Qty: 30 RF: 0 No Action PNV cmb#[id number]-ferrous fumarate-FA [] 28 mg iron- 800 mcg Tablet 1 tablet PO DAILY RF: 0 Date of admission: 09/27/20 05:49 Primary Care Provider: Garry Pate Admitting Provider: Salomón Mendez Attending physician on admission: Salomón Mendez Condition: Stable
[2020-09-28] MEDS: OXYTOCIN 30 UNITS/NS 500 ML 30 UNITS/500 ML BAG 125 UNITS IV CONT (17:10)
[2020-09-28] MEDS: MORPHINE SULFATE PCA (*CRX) 30 MG/30 ML SYR IV CONT (17:24)
[2020-09-28] MEDS: KETOROLAC 30 MG/ML VIAL (*BKC) IV PUSH (17:40)
--- NOTE | 2020-09-28 18:32 | OBPPTRN ---
Patient transferred to post room #286 via stretcher. Support person present. Oriented to unit, room, information board, rooming in, admission packet and security measures. Patient verbalizes understanding. Infant in level II nursery. Will be coming up after first dose of antibiotics given.
[2020-09-28] MEDS: DEXTROSE 5%/0.45% SOD CHL 1,000 ML 125 ML IV CONT (20:55)
[2020-09-29] MEDS: KETOROLAC 30 MG/ML VIAL (*BKC) IV PUSH (04:27)
[2020-09-29 04:30] VITALS: BP 119/77; PULSE 94; RESP 16; TEMP 36.2; O2SAT 96
[2020-09-29] MEDS: KCL 20 MEQ/D5/0.45% SOD CHL 1,000 ML 125 ML IV CONT (04:45)
[2020-09-29 05:00] LABS: Basophils Percent Auto 0.3 % (0.2-1.2); Eosinophils Absolute Auto 0.2 K/mm3 (0-0.3); Eosinophils Percent Auto 1.3 % (0-4.4); Hematocrit 28.6 % (37.0-47.0); Hemoglobin 9.5 g/dL (12.0-15.0); Immature Granulocyte Absolute 0.11 K/mm3 (0.00-0.031); Immature Granulocyte Percent A 0.7 % (0-0.5); Lymphocytes Absolute Auto 1.92 K/mm3 (0.9-3.2); Lymphocytes Percent Auto 12.1 % (18.3-44.2); Mean Corpuscular HGB Conc 33.2 g/dl (32-36); Mean Corpuscular Hemoglobin 26.8 pg (26-34); Mean Corpuscular Volume 80.6 fl (80-100); Mean Platelet Volume 10.4 fl (7.4-10.4); Monocytes Absolute Auto 0.7 K/mm3 (0.1-0.6); Monocytes Percent Auto 4.6 % (2.6-8.5); Neutrophils Absolute Auto 12.9 K/mm3 (1.3-6.7); Platelet Count Result 199 k/mm3 (150-375); Red Blood Count 3.55 M/mm3 (4.2-5.4); White Blood Count 15.9 K/mm3 (4.5-10.0)
--- NOTE | 2020-09-29 07:25 | WPDANLDNPN2 ---
Anes-Prog Note L&D-Neuraxial Date/Time: 09/29/20 07:25 Neuraxial medications: epidural PF morphine Opiod-related complaints: none Patient feedback: Patient satisfied with post-operative pain management.
--- NOTE | 2020-09-29 07:25 | WPDANLDPN2 ---
Anes-Prog Note L&D Date/Time: 09/29/20 07:25 Comfortable throughout: labor, delivery and section Neuraxial method: epidural Epidural/Spinal procedure site: clean & non-tender Neuro status: Neuro function grossly intact. Cardiovascular status: normal Respiratory status: normal Airway patency: baseline Mental status: baseline Post-Op hydration status: normal Vital Signs: Last Vital Signs Temp 36.2 C L 09/29/20 04:30 Pulse 94 09/29/20 04:30 Resp 16 09/29/20 04:30 BP 119/77 09/29/20 04:30 Pulse Ox 96 09/29/20 04:30 Pain score (VAS): 0 I/O: Intake & Output 09/28/20 09/28/20 09/29/20 15:59 23:59 07:59 Intake Total 200 500 Output Total [phone] [phone] Post-procedural complaints: none Patient feedback: Patient satisfied with anesthetic care.
[2020-09-29 07:45] VITALS: BP 123/81; PULSE 88; RESP 18; TEMP 36.2; O2SAT 95
[2020-09-29] MEDS: MULTIVIT/MIN/PREN/FOL AC/IRON TABLET 1 TAB PO (08:25)
[2020-09-29] MEDS: DOCUSATE SODIUM 100 MG CAPSULE PO ×2 (08:25→16:24)
[2020-09-29] MEDS: POLYSACCHARIDE IRON COMPLEX 150 MG CAPSULE PO ×2 (08:25→16:24)
[2020-09-29] MEDS: HYDROcodone/acetaminophen (*CRX) 5-325 MG TABLET 1 TAB PO ×3 (08:25→22:51)
[2020-09-29 09:09] VITALS: RESP 18
--- NOTE | 2020-09-29 09:45 | PC.NURSE ---
Consult with pt., mother reports has latched a few times since , other attempts is sleepy and bottle fed. Mother has been pumping after all attempts. Mother breastfed first child for 2-3 months, reporting her milk just dried up Reviewed feeding cues, frequencies, duration of feedings, feeding elimination flow sheet, and signs of adequate intake. Demonstrated stimulation techniques to wake infant for feeding. Nipple care reviewed. Requested mother call out next feeding. Instructed feeding should be initiated three hours from start of last feeding or if feeding cues are noted before. Mother voiced understanding of information shared.
[2020-09-29 12:15] VITALS: BP 137/87; PULSE 101; RESP 18; TEMP 37.6; O2SAT 96
--- NOTE | 2020-09-29 12:42 | PM.OBPNVD ---
OB - PN: Subj Subjective Date/time seen: 09/29/20 12:42 Narrative: Pain OK. Tolerating diet. Desires circumcision for son. OB - PN: Obj Data Labs CBC & Chem 7: 09/29/20 04:26 Labs: Laboratory Results - last 24 hr 09/27/20 09/29/20 06:34 04:26 WBC 15.9 H RBC 3.55 L Hgb 9.5 L Hct 28.6 L MCV 80.6 MCH 26.8 MCHC 33.2 RDW 14.0 Plt Count 199 MPV 10.4 Immature Gran % (Auto) 0.7 H Neut % (Auto) 81.0 H Lymph % (Auto) 12.1 L Bandera % (Auto) 4.6 Eos % (Auto) 1.3 Baso % (Auto) 0.3 Lymph # (Auto) 1.92 Band[place] # (Auto) 0.7 H Eos # (Auto) 0.2 Baso # (Auto) 0.0 Abs Immat Gran (auto) 0.11 H Absolute Neuts (auto) 12.9 H Absolute Nucleated RBC 0.0 Nucleated RBC % 0.0 RPR Non-reactive OB - PN A/P Plan Comments: A: POD#1, doing well. P: Routine care. Reviewed circ. Exam Narrative: Exam Narrative: AVSS I/O OK ABD soft, nontender, fundus firm. Incision c/d/i. EXT nontender
--- NOTE | 2020-09-29 14:50 | PC.NURSE ---
Consulted with patient, mother reports infant sleepy make weak attempts to latch. Reviewed feeding cues, frequencies, duration of feedings, feeding elimination flow sheet, and signs of adequate intake. Demonstrated stimulation techniques to wake infant for feeding. Demonstrated self- expression t suggested to do before attempting latch Assisted with to breast. Reviewed positioning/alignment in football, holding breast in C hold and guided asymmetrical latch on. was able to latch correctly with first attempt. nursed eagerly, with steady draws and frequent swallowing noted. Reviewed signs of a correct latch, effective nursing and suck swallow ratio. was able to maintain latch without discomfort to mother. Reviewed effective vs ineffective nursing. Nipple care reviewed. Suggested to stimulate to keep in an effective nursing pattern for increased intake and to assist with maintaining deep latch. Demonstrated how to adjust latch while feeding. Instructed mother to call out for RN assistance if she is unable to latch for feeding or she has discomfort with nursing. Instructed feeding should be initiated three hours from start of last feeding or if feeding cues are noted before. Mother voiced understanding of information shared.
[2020-09-29] MEDS: IBUPROFEN 600 MG TABLET PO ×2 (16:24→22:51)
[2020-09-29 21:00] VITALS: BP 124/75; PULSE 95; RESP 16; TEMP 36.8; O2SAT 98
[2020-09-30] MEDS: DOCUSATE SODIUM 100 MG CAPSULE PO ×2 (07:34→18:26)
[2020-09-30] MEDS: MULTIVIT/MIN/PREN/FOL AC/IRON TABLET 1 TAB PO (07:34)
[2020-09-30] MEDS: IBUPROFEN 600 MG TABLET PO ×2 (07:34→18:26)
[2020-09-30] MEDS: HYDROcodone/acetaminophen (*CRX) 5-325 MG TABLET 1 TAB PO ×2 (07:34→18:27)
[2020-09-30] MEDS: POLYSACCHARIDE IRON COMPLEX 150 MG CAPSULE PO (07:37)
[2020-09-30 08:05] VITALS: BP 112/66; PULSE 83; RESP 18; TEMP 37.3; O2SAT 98
--- NOTE | 2020-09-30 09:20 | PC.NURSE ---
consult with pt., mother reports eagerly fed during the night without discomfort or difficulties, supplementing after one feeding. Mother is able to independently latch infant with appropriate positioning/alignment, is feeding as required and waking infant to feed if needed. has had at least 8 effective feedings in the past 24 hours, and is currently meeting outcomes for weight, output, jaundice and feeding frequencies. Mother states she feels confident to continue effective at home. Reviewed transition to breast milk, signs of adequate intake, and engorgement/relief. Instructed to call ICP if intake/output less than required. Reviewed regular medications mother is taking. Information provided per [place]. Reviewed community resources on the [facility] website and in the Mom/Baby guide. Information on outpatient services provided. Mother has no further questions at this time.
--- NOTE | 2020-09-30 12:53 | PM.OBPNVD ---
OB - PN: Subj Subjective Date/time seen: 09/30/20 12:53 Narrative: Pain OK. Tolerating diet. OB - PN: Obj Data Labs CBC & Chem 7: 09/29/20 04:26 OB - PN A/P Plan Comments: A: POD#2, doing well. P: Routine care. Exam Narrative: Exam Narrative: AVSS I/O OK ABD soft, nontender, fundus firm. Incision c/d/i. EXT nontender
[2020-09-30 19:10] VITALS: BP 121/73; PULSE 93; RESP 18; TEMP 36.1; O2SAT 98
--- NOTE | 2020-09-30 19:10 | PC.NURSE ---
Patient to view the discharge video Mother & Baby Care, The First Two Weeks online. Patient was given the opportunity and encouraged to ask questions. Patient verbalized understanding of information shared and has been given the mother/baby guide for home reference.
[2020-10-01] MEDS: IBUPROFEN 600 MG TABLET PO ×3 (00:17→16:33)
[2020-10-01] MEDS: HYDROcodone/acetaminophen (*CRX) 5-325 MG TABLET 1 TAB PO ×3 (00:18→16:33)
[2020-10-01] MEDS: MULTIVIT/MIN/PREN/FOL AC/IRON TABLET 1 TAB PO (07:27)
[2020-10-01] MEDS: SIMETHICONE 80 MG TAB.CHEW PO ×2 (07:27→16:33)
[2020-10-01] MEDS: DOCUSATE SODIUM 100 MG CAPSULE PO ×2 (07:28→16:32)
[2020-10-01] MEDS: POLYSACCHARIDE IRON COMPLEX 150 MG CAPSULE PO ×2 (07:28→16:33)
[2020-10-01 08:00] VITALS: BP 125/84; PULSE 82; RESP 18; TEMP 36.6; O2SAT 100
--- NOTE | 2020-10-01 09:19 | PM.OBPNVD ---
OB - PN: Subj Subjective Date/time seen: 10/01/20 09:19 Narrative: Pain OK. Tolerating diet. OB - PN: Obj Data Labs CBC & Chem 7: 09/29/20 04:26 OB - PN A/P Plan Comments: A: POD#3, doing well. P: Routine care. Exam Narrative: Exam Narrative: AVSS ABD soft, nontender, fundus firm. Incision c/d/i. EXT nontender
[2020-10-01 20:00] VITALS: BP 126/80; PULSE 74; RESP 18; TEMP 36.4; O2SAT 100
[2020-10-02] MEDS: HYDROcodone/acetaminophen (*CRX) 5-325 MG TABLET 1 TAB PO ×3 (07:21→17:15)
[2020-10-02] MEDS: IBUPROFEN 600 MG TABLET PO ×2 (07:21→14:09)
[2020-10-02] MEDS: SIMETHICONE 80 MG TAB.CHEW PO ×3 (07:21→17:15)
[2020-10-02] MEDS: DOCUSATE SODIUM 100 MG CAPSULE PO ×2 (07:22→17:15)
[2020-10-02] MEDS: MULTIVIT/MIN/PREN/FOL AC/IRON TABLET 1 TAB PO (07:22)
[2020-10-02] MEDS: POLYSACCHARIDE IRON COMPLEX 150 MG CAPSULE PO ×2 (07:22→17:15)
[2020-10-02] MEDS: LANOLIN (LANSINOH) 7.5 GM CREAM 1 APPLIC TOPICAL (07:22)
[2020-10-02 07:34] VITALS: BP 125/84; PULSE 93; RESP 18; TEMP 37.2
--- NOTE | 2020-10-02 10:47 | PM.OBPNVD ---
OB - PN: Subj Subjective Date/time seen: 10/02/20 10:47 Narrative: Pain OK. Tolerating diet. Would like to go home. OB - PN: Obj Data Labs CBC & Chem 7: 09/29/20 04:26 OB - PN A/P Plan Comments: A: POD#4, doing well. P: Home to f/u 4 weeks. Exam Narrative: Exam Narrative: AVSS ABD soft, nontender, fundus firm. Incision c/d/i. EXT nontender
[2020-10-02] MEDS: ACETAMINOPHEN 325 MG TABLET 650 MG PO (14:10)
--- NOTE | 2020-10-02 16:36 | PC.NURSE ---
Self care discharge instructions given to pt. including follow up visit date and time. Pt. verbalized understanding. No questions or concerns voiced. Pt. discharged to No Care Bed status along with instructions.
--- NOTE | 2020-10-03 08:48 | PC.NURSE ---
Consulted with patient, mom states she had chose to pump breastmilk and supplement with formula as needed. States she does not desire to work on getting the on the breast. Reviewed pumping times and hands on pumping with mom. Flange size and pump setting discussed with patient and she verbalizes understanding. Mom states she has no pain with pumping and she has no questions. Encouraged to call out if she has any questions or concerns. Mother voiced understanding of information shared.
[2020-10-04 10:48] VITALS: BP 123/79; PULSE 90; RESP 20; TEMP 36.8; O2SAT 99
== END 2020-10-02 17:30 | disposition home or self-care (01) | DRG 540 ==
LOC: ANHLDR 09-28 17:08 → ANHOB2 09-28 22:29
PROVIDERS: Admitting Provider Obstetrics & Gynecology; PCP Internal Medicine; Visit Provider Obstetrics & Gynecology
PROC: 10D00Z1 Extraction of Products of Conception, Low, Open Approach (ICD-10-PCS; CPT 59514; principal; 2020-09-28 14:00)
DX: O62.1 Secondary uterine inertia (principal); O76 Abnormality in fetal heart rate and rhythm complicating labor and delivery; Z3A.39 39 weeks gestation of pregnancy; Z37.0 Single live birth; O99.284 Endocrine, nutritional and metabolic diseases complicating childbirth; E05.00 Thyrotoxicosis with diffuse goiter without thyrotoxic crisis or storm; E28.2 Polycystic ovarian syndrome; Z87.42 Personal history of other diseases of the female genital tract
CPT/HCPCS: 36415; 85025; 86592; 86850; 86900; 86901; 88307; A9270; J0290; J1200; J1885; J2270; J2405; J2590; J2795; J3480; J7120

== ENCOUNTER 2022-04-16 11:11 | Outpatient (CLI) | payer OTHER, SELFPAY ==
--- NOTE | ~2022-04-16 | XR_ITS ---
XR chest 2V DATE: 04/16/2022 12:37 INDICATION: Congestion TECHNIQUE: PA and lateral views COMPARISON: 05/06/2020 portable AP chest FINDINGS: Normal heart size. No hilar or mediastinal enlargement. No pulmonary infiltrate or consolid ation, pleural effusion or pulmonary vascular congestion or pneumothorax. Status post cholecystectomy. Included skeletal structures are unremarkable. IMPRESSION: No active cardiopulmonary disease Status post cholecystectomy Reviewed, dictated and finalized at location B.
[2022-04-16 12:22] LABS: Influenza Control Valid (Valid); SARS-CoV-2 Ag Negative (Negative)
== END 2022-04-16 11:12 | disposition home or self-care (01) ==
LOC: CHSLAB 11:14 → CHSIMG 11:55
PROVIDERS: PCP Internal Medicine; Visit Provider Internal Medicine
DX: R09.89 Other specified symptoms and signs involving the circulatory and respiratory systems (principal); Z20.822 Contact with and (suspected) exposure to COVID-19
CPT/HCPCS: 71046; 87081; 87426; 87804; 87880; C9803

== ENCOUNTER 2022-05-01 08:40 | Outpatient (CLI) | payer OTHER, SELFPAY ==
[2022-05-01 08:55] LABS: Basophils Absolute Auto 0.06 K/mm3 (0.00-0.10); Basophils Percent Auto 0.7 % (0.0-1.0); Eosinophils Absolute Auto 0.16 K/mm3 (0.02-0.50); Hematocrit 37.5 % (35.0-49.0); Hemoglobin 12.8 g/dL (12.0-15.0); Immature Granulocyte Absolute 0.04 K/mm3 (0.00-0.00); Immature Granulocyte Percent A 0.5 % (0.0-0.0); Lymphocytes Absolute Auto 2.03 K/mm3 (1.10-4.50); Lymphocytes Percent Auto 25.2 % (18.0-42.0); Mean Corpuscular HGB Conc 34.1 g/dL (32.0-36.0); Mean Corpuscular Hemoglobin 29.1 pg (27.0-31.0); Mean Corpuscular Volume 85.2 fL (78.0-102.0); Mean Platelet Volume 9.2 fl (9.2-11.8); Monocytes Absolute Auto 0.49 K/mm3 (0.10-0.90); Monocytes Percent Auto 6.1 % (2.0-11.0); Neutrophils Absolute Auto 5.3 K/mm3 (1.7-7.2); Neutrophils Percent Auto 65.5 % (50.0-70.0); Platelet Count Result 275 K/mm3 (150-420); Red Cell Distribution Width 12.8 % (11.6-14.4)
[2022-05-01 09:03] LABS: Add Urine Microscopic? YES; Appearance Urine Clear (Clear); Bilirubin Urine Negative (Negative); Blood Urine 1+ (Negative); Color Urine Yellow (Yellow); Glucose Urine UA Negative (Negative); Ketones Urine Negative (Negative); Leukocyte Esterase Ur Trace LEU/UL (Negative); Nitrate Urine Negative (Negative); Protein Urine Negative (Negative); Specific Grav Ur >= 1.030 (1.010-1.020); Urobilinogen Urine 0.2 mg/dL (0.2-1.0); pH Urine 5.5 (5.0-8.0)
[2022-05-01 09:11] LABS: Bacteria Urine 1+ /hpf; Squamous Epithelial Cell Urine Moderate /hpf (Few)
[2022-05-01 09:58] LABS: Alanine Aminotransferase 28 U/L (14-59); Albumin Level 3.8 g/dL (3.4-5.0); Alkaline Phosphatase 72 U/L (46-116); Anion Gap 8 mmol/L (8-16); Aspartate Amino Transferase 16 U/L (15-37); Bilirubin,Total 0.4 mg/dL (0.00-1.00); Blood Urea Nitrogen 13 mg/dL (7-18); Calcium 8.5 mg/dL (8.5-10.1); Carbon Dioxide 25 mmol/L (21-32); Chloride 106 mmol/L (98-108); Cholesterol 190 mg/dL (0-200); Estimated Glomerular Filt Rate > 60; Ferritin 49 ng/mL (8-252); Free T4 Free Thyroxine 1.03 ng/dL (0.76-1.46); Glucose 91 mg/dL (70-99); HDL Direct 47 mg/dL (40-60); Iron 56 ug/dL (50-170); LDL Cholesterol Calculated 118 mg/dL (<130); Osmolality Calculated 288 mOsm/kg (285-295); Percent Iron Saturation 23 % (12-57); Potassium 4.1 mmol/L (3.5-5.1); Sodium 139 mmol/L (136-145); Thyroid Stimulating Hormone 1.77 uIU/mL (0.36-3.74); Total Protein 7.4 g/dL (6.4-8.2); Triglycerides 125 mg/dL (0-150); Vitamin B12 427 pg/mL (193-986)
[2022-05-01 11:14] LABS: SPREG INTERNAL CONTROL Positive; Serum Qual hCG Negative
[2022-05-05 18:59] LABS: Vitamin D 25 Hydroxy 25 ng/mL (30-100)
[2022-05-09 22:49] LABS: ANCA Screen Negative (Negative); Myeloperoxidase Ab <1.0 AI (<1.0); Proteinase-3 Ab <1.0 AI (<1.0); S cerevisiae Ab (IgA) 4.5 U (<=20.0); S cerevisiae Ab (IgG) 9.4 U (<=20.0)
== END 2022-05-01 08:41 | disposition home or self-care (01) ==
LOC: CHSLAB 08:43
PROVIDERS: PCP Internal Medicine; Visit Provider Nurse Practitioner Family
DX: Z00.00 Encounter for general adult medical examination without abnormal findings (principal); R53.82 Chronic fatigue, unspecified; E05.00 Thyrotoxicosis with diffuse goiter without thyrotoxic crisis or storm; K58.9 Irritable bowel syndrome, unspecified; F41.1 Generalized anxiety disorder; R82.90 Unspecified abnormal findings in urine
CPT/HCPCS: 36415; 80053; 80061; 81001; 82306; 82607; 82728; 83540; 83550; 84439; 84443; 84703; 85025; 86036; 86671; 87077; 87086; 87088; 87186; 88112

== ENCOUNTER 2022-11-09 10:52 | Outpatient (CLI) | payer OTHER, SELFPAY ==
--- NOTE | ~2022-11-09 | XR_ITS ---
Lumbosacral Spine: AP and lateral views Clinical History: Pain Findings: The normal lordotic curve is maintained. The vertebral bodies and posterior elements are i ntact. The intervertebral disc spaces are preserved. The sacroiliac joints are normally outlined. Impression: No significant abnormality. Reviewed, dictated and finalized at [facility]. LIBRARIAN Impression: No significant abnormality.
--- NOTE | ~2022-11-09 | XR_ITS ---
AP and oblique views of the SI joints Clinical history: Back pain FINDINGS: SI joints are unremarkable. No erosive, inflammatory, or degenerative change seen. No scler osis. Bilateral hip joints appear unremarkable. Soft tissues are unremarkable. IMPRESSION: Unremarkable exam. Reviewed, dictated and finalized at location . ATION ONCOLOGY NURSE IMPRESSION: Unremarkable exam.
--- NOTE | ~2022-11-09 | XR_ITS ---
AP and lateral views of the left hip Clinical history: Pain Findings: No acute fracture or dislocation is seen. Osseous alignment is anatomic. Left hip and left SI joint are preserved. Soft tissues are unremarkable. Impression: No significant abnormality is seen. Reviewed, dictated and finalized at [facility]. CONSULTANT Impression: No significant abnormality is seen.
[2022-11-09 11:10] LABS: Basophils Absolute Auto 0.05 K/mm3 (0.00-0.10); Basophils Percent Auto 0.6 % (0.0-1.0); Eosinophils Absolute Auto 0.16 K/mm3 (0.02-0.50); Hematocrit 38.8 % (35.0-49.0); Hemoglobin 13.3 g/dL (12.0-15.0); Immature Granulocyte Absolute 0.03 K/mm3 (0.00-0.00); Immature Granulocyte Percent A 0.4 % (0.0-0.0); Lymphocytes Absolute Auto 1.96 K/mm3 (1.10-4.50); Mean Corpuscular HGB Conc 34.3 g/dL (32.0-36.0); Mean Corpuscular Hemoglobin 28.7 pg (27.0-31.0); Mean Corpuscular Volume 83.6 fL (78.0-102.0); Mean Platelet Volume 9.3 fl (9.2-11.8); Monocytes Absolute Auto 0.46 K/mm3 (0.10-0.90); Monocytes Percent Auto 5.6 % (2.0-11.0); Neutrophils Absolute Auto 5.5 K/mm3 (1.7-7.2); Neutrophils Percent Auto 67.4 % (50.0-70.0); Platelet Count Result 280 K/mm3 (150-420); Red Blood Count 4.64 M/mm3 (4.20-5.40); Red Cell Distribution Width 12.4 % (11.6-14.4); White Blood Count 8.2 K/mm3 (4.8-10.8)
[2022-11-09 11:40] LABS: Add Urine Microscopic? YES; Appearance Urine Clear (Clear); Bilirubin Urine Negative (Negative); Blood Urine Trace-Intact (Negative); Color Urine Light Yellow (Yellow); Glucose Urine UA Negative (Negative); Ketones Urine Negative (Negative); Leukocyte Esterase Ur 1+ LEU/UL (Negative); Nitrate Urine Negative (Negative); Protein Urine Negative (Negative); Specific Grav Ur >= 1.030 (1.010-1.020); Urobilinogen Urine 0.2 mg/dL (0.2-1.0); pH Urine 5.5 (5.0-8.0)
[2022-11-09 11:49] LABS: RBC Urine 0-2 /hpf (0-2); Squamous Epithelial Cell Urine Few /hpf (Few)
[2022-11-09 11:50] LABS: Bacteria Urine 1+ /hpf
[2022-11-09 12:04] LABS: Rheumatoid Factor Screen Negative (Negative)
[2022-11-09 12:07] LABS: Anion Gap 10 mmol/L (8-16); Blood Urea Nitrogen 11 mg/dL (7-18); CRP 0.6 mg/dL (0.0-0.9); Carbon Dioxide 27 mmol/L (21-32); Chloride 102 mmol/L (98-108); Estimated Glomerular Filt Rate > 60; Glucose 95 mg/dL (70-99); Osmolality Calculated 287 mOsm/kg (285-295); Potassium 4.3 mmol/L (3.5-5.1); Sodium 139 mmol/L (136-145)
[2022-11-09 12:14] LABS: Erythrocyte Sedimentation Rate 15 mm/hr (0-15)
[2022-11-13 10:03] LABS: HLA B27 Negative (Negative)
[2022-11-13 14:03] LABS: Anti Nuclear Antibody Titer 1:40 (Negative)
== END 2022-11-09 10:53 | disposition home or self-care (01) ==
LOC: CHSLAB 10:54
PROVIDERS: PCP Internal Medicine; Visit Provider Internal Medicine
DX: M54.50 Low back pain, unspecified (principal); M25.552 Pain in left hip
CPT/HCPCS: 36415; 72100; 72202; 73502; 80048; 81001; 85025; 85652; 86038; 86039; 86140; 86430; 86812; 87086

== ENCOUNTER 2022-11-13 15:55 | Outpatient (RCR) | payer OTHER, SELFPAY ==
--- NOTE | 2022-11-13 17:03 | PTOPEVAL1 ---
Assessment and note entered by Manjula Espinal DPT Evaluation Information Assessment Status Evaluation Diagnosis low back pain Onset 06/21/22 Subjective Information Patient reports in June her L hip hurt down to knee. She was suspecting ITB. On Oct 29 she slipped down the stairs at her house and now her low back pain. She now has difficuly crossing her legs, bending over, standing for long periods of time. She reports that sitting in the recliner and ibuprofen help to decrease pain. She does report that she will occasionally get tingling in the L LE. She works as a land scaper and snow plows. Reported Pain Level Pain Score 6,6: Self Report Assessment PT Clinical Summary Patient presents to PT with low back and left hip pain. Patient demonstrates decreased L hip abduction strength, decreased B LE flexibility and decreased lumbar mobility impairing her ability to complete house hold and work tasks. She would benefit from skilled PT to address impairments and return to PLOF. Patient has decreased pain following piriformis release. Plan of Care Interventions Electrical Stimulation,Gait Training,Hot Pack/Cold Pack,Manual Therapy,Mechanical Traction,Neuro Re- education,Patient/Caregiver Educati,Therapeutic Activities,Therapeutic Exercise PT Services Indicated Yes Treatment Frequency and 2x weekly for 10 visits Duration These treatments will address the objective and functional deficits as defined above. The patient will be advanced safely and appropriately in order for the patient to progress towards his/her prior level of function. Additional exercises will be introduced and as well as a comprehensive home exercise program upon discharge, if needed, ?to ensure carryover of functional gains achieved in the clinic. This treatment plan has been reviewed and agreement upon by the patient.
== END 2022-11-20 14:41 | disposition home or self-care (01) ==
LOC: CHSPT 15:55
PROVIDERS: PCP Internal Medicine; Visit Provider Internal Medicine
DX: M54.50 Low back pain, unspecified (principal)
CPT/HCPCS: 97014; 97110; 97161; G0283

== ENCOUNTER 2023-02-04 15:08 | Outpatient (CLI) | payer OTHER, SELFPAY ==
[2023-02-04 15:33] LABS: Basophils Absolute Auto 0.04 K/mm3 (0.00-0.10); Basophils Percent Auto 0.6 % (0.0-1.0); Eosinophils Absolute Auto 0.26 K/mm3 (0.02-0.50); Eosinophils Percent Auto 3.7 % (1.0-6.0); Hematocrit 39.5 % (35.0-49.0); Hemoglobin 13.2 g/dL (12.0-15.0); Immature Granulocyte Absolute 0.01 K/mm3 (0.00-0.00); Immature Granulocyte Percent A 0.1 % (0.0-0.0); Lymphocytes Percent Auto 35.3 % (18.0-42.0); Mean Corpuscular HGB Conc 33.4 g/dL (32.0-36.0); Mean Corpuscular Hemoglobin 28.9 pg (27.0-31.0); Mean Corpuscular Volume 86.4 fL (78.0-102.0); Mean Platelet Volume 9.5 fl (9.2-11.8); Monocytes Absolute Auto 0.57 K/mm3 (0.10-0.90); Monocytes Percent Auto 8.1 % (2.0-11.0); Neutrophils Absolute Auto 3.7 K/mm3 (1.7-7.2); Neutrophils Percent Auto 52.2 % (50.0-70.0); Platelet Count Result 290 K/mm3 (150-420); Red Blood Count 4.57 M/mm3 (4.20-5.40); Red Cell Distribution Width 12.8 % (11.6-14.4); White Blood Count 7.1 K/mm3 (4.8-10.8)
[2023-02-04 16:08] LABS: Influenza A QL RT-PCR Negative (Negative); Influenza B QL RT-PCR Negative (Negative); SARS-CoV-2 RNA PCR Negative (Negative)
[2023-02-04 16:09] LABS: RSV RNA, RT-PCR Negative (Negative)
[2023-02-04 16:34] LABS: Strep Group A RT-PCR NOT DETECTED (Negative)
== END 2023-02-04 15:09 | disposition home or self-care (01) ==
LOC: CHSLAB 15:10
PROVIDERS: PCP Internal Medicine; Visit Provider Internal Medicine
DX: J06.9 Acute upper respiratory infection, unspecified (principal)
CPT/HCPCS: 36415; 85025; 87637; 87651

== ENCOUNTER 2023-03-10 17:58 | Emergency (ER) | payer OTHER, SELFPAY ==
[2023-03-10 18:00] VITALS: BP 150/95; PULSE 99; RESP 18; TEMP 37.7; O2SAT 96
--- NOTE | 2023-03-10 18:25 | ED.FEMALEGU ---
HPI - Female Genitourinary General Chief complaint: Abdominal Pain Stated complaint: UTI symptoms Time Seen by Provider: 03/10/23 18:20 History of Present Illness HPI Narrative: 37-year-old female patient with history of recurrent urinary tract infection is here with complaints of urinary frequency and burning and low back pain for the last couple of weeks. Patient states that and she did have vomiting earlier last week but has had no fever or chills. She denies any blood in the urine. She did take 2 tablets of nitrofurantoin this morning and she also keeps Pyridium at hand but has not taken it for a few days. Patient states that she frequently gets urinary tract infection after sexual intercourse. Has been advised by her primary care provider to use nitrofurantoin after the sexual intercourse . The patient is para 2 2 last child is 2 years old. She had her last menstrual period in September. She does have history of irregular menstrual periods and a very strong family history of PCOS. In addition to that the patient also has history of Graves disease and is on medication for the same. Related Data Home Medications Medication Instructions Recorded Confirmed nitrofurantoin 200 mg PO DAILY 03/10/23 03/10/23 monohydrate/macrocrystals 100 mg capsule Allergies Allergy/AdvReac Type Severity Reaction Status Date / Time cefaclor Allergy Mild RASH Verified 03/10/23 18:10 Review of Systems Review of Systems: All systems reviewed & are unremarkable except as noted in HPI and below PMFSH Past Medical History Medical History Graves disease History of gallstones PCO (polycystic ovaries) Family History Family History Father Family history of alcoholism Depression Sibling Family history of alcoholism Mother Family history of migraine headaches Sleep apnea Grandparent Pancreas carcinoma Social History Social History Smoking status: Never smoker Alcohol intake: never Substance use: never Gender identity (if verbalized by the patient): Female Sexual Orientation (if Verbalized by the Patient): Straight or Heterosexual Spiritual care concerns: No Exam Narrative: Alert female patient who appears in no acute distress But is uncomfortable vitals are stable and patient does have a low-grade fever. Her initial blood pressure is slightly elevated HEENT : Normal Lungs are claer bilaterally Heart tones are regular Abdomen is soft and nontender except for mild tenderness in suprapubic area Pelvic exam reveals clear vaginal discharge. Neurologic exam is normal Mood and affect are normal Course Course Emergency Course: CBC shows a normal white cell count. Comprehensive metabolic profile is normal and urinalysis shows no obvious bacteria or pyuria or hematuria. Urine culture has been established in spite of urinalysis being negative. Wet prep for Trichomonas is negative. The patient has been advised to withhold any antibiotics at this time until we get the culture sensitivity back. In the meantime she has been is prieto to stay hydrated and use azo as needed for urinary discomfort. Vital Signs Vital signs: Vital Signs Temperature 37.7 C H 03/10/23 18:00 Pulse Rate 99 03/10/23 18:00 Respiratory Rate 18 03/10/23 18:00 Blood Pressure 150/95 H 03/10/23 18:00 Pulse Oximetry 96 03/10/23 18:00 Oxygen Delivery Room Air 03/10/23 18:00 Temperature 37.7 C H 03/10/23 18:00 Pulse Rate 99 03/10/23 18:00 Respiratory Rate 18 03/10/23 18:00 Blood Pressure 150/95 H 03/10/23 18:00 Pulse Oximetry 96 03/10/23 18:00 Oxygen Delivery Room Air 03/10/23 18:00 MDM - Female Genitourinary Lab Data Labs: Lab Results 03/10/23 Range/Units 18:12 Urine Color Pend
[2023-03-10 18:27] LABS: Appearance Urine Clear (Clear); Bilirubin Urine Negative (Negative); Glucose Urine UA Negative (Negative); Ketones Urine Negative (Negative); Leukocyte Esterase Ur Negative (Negative); Nitrate Urine Negative (Negative); Protein Urine Negative (Negative); Specific Grav Ur 1.015 (1.010-1.020); Urobilinogen Urine 0.2 mg/dL (0.2-1.0)
[2023-03-10] MEDS: IBUPROFEN 600 MG TABLET PO (18:30)
[2023-03-10] MEDS: ACETAMINOPHEN 325 MG TABLET 650 MG PO (18:31)
[2023-03-10] MEDS: PHENAZOPYRIDINE HCL 100 MG TABLET 200 MG PO (18:31)
[2023-03-10 18:33] LABS: Blood Urine Trace-lysed (Negative); Color Urine Yellow (Yellow)
[2023-03-10 18:34] LABS: Add Urine Microscopic? YES; RBC Urine 0-2 /hpf (0-2); Squamous Epithelial Cell Urine Occasional /hpf (Few)
[2023-03-10 18:47] LABS: Basophils Absolute Auto 0.03 K/mm3 (0.00-0.10); Basophils Percent Auto 0.4 % (0.0-1.0); Eosinophils Absolute Auto 0.05 K/mm3 (0.02-0.50); Eosinophils Percent Auto 0.7 % (1.0-6.0); Hematocrit 39.8 % (35.0-49.0); Hemoglobin 13.5 g/dL (12.0-15.0); Immature Granulocyte Absolute 0.02 K/mm3 (0.00-0.00); Immature Granulocyte Percent A 0.3 % (0.0-0.0); Lymphocytes Absolute Auto 1.03 K/mm3 (1.10-4.50); Lymphocytes Percent Auto 15.3 % (18.0-42.0); Mean Corpuscular HGB Conc 33.9 g/dL (32.0-36.0); Mean Corpuscular Volume 85.4 fL (78.0-102.0); Mean Platelet Volume 9.3 fl (9.2-11.8); Monocytes Absolute Auto 0.46 K/mm3 (0.10-0.90); Monocytes Percent Auto 6.8 % (2.0-11.0); Neutrophils Absolute Auto 5.1 K/mm3 (1.7-7.2); Neutrophils Percent Auto 76.5 % (50.0-70.0); Platelet Count Result 246 K/mm3 (150-420); Red Blood Count 4.66 M/mm3 (4.20-5.40); Red Cell Distribution Width 12.8 % (11.6-14.4); White Blood Count 6.7 K/mm3 (4.8-10.8)
[2023-03-10] MEDS: ONDANSETRON HCL ODT 4 MG TABLET PO (19:00)
[2023-03-10 19:01] LABS: Alanine Aminotransferase 24 U/L (14-59); Alkaline Phosphatase 67 U/L (46-116); Anion Gap 9 mmol/L (8-16); Aspartate Amino Transferase 16 U/L (15-37); Bilirubin,Total 0.7 mg/dL (0.00-1.00); Blood Urea Nitrogen 11 mg/dL (7-18); Calcium 8.9 mg/dL (8.5-10.1); Carbon Dioxide 27 mmol/L (21-32); Chloride 101 mmol/L (98-108); Estimated CRCL calculation 103 ml/min; Estimated Glomerular Filt Rate > 60; Glucose 91 mg/dL (70-99); Osmolality Calculated 283 mOsm/kg (285-295); Potassium 3.8 mmol/L (3.5-5.1); Sodium 137 mmol/L (136-145)
[2023-03-10 19:04] VITALS: TEMP 37.2
[2023-03-10 19:17] LABS: Pregnancy On Board Control Positive; Urine Pregnancy Test Negative
[2023-03-10 19:44] VITALS: BP 131/81; PULSE 88; RESP 20; TEMP 36.8; O2SAT 99
--- NOTE | 2023-03-11 13:19 | PC.NURSE ---
FINAL WET PREP TRICHOMONAS: Negative, No further treatment needed.
--- NOTE | 2023-03-13 14:51 | PC.NURSE ---
FINAL URINE CULTURE RESULTS MIXED GENITAL JASMINA ISOLATED. NO ACTION NEEDED.
== END 2023-03-10 19:47 | disposition home or self-care (01) ==
PROVIDERS: Emergency Provider Emergency Medicine; PCP Internal Medicine
DX: R30.0 Dysuria (principal)
CPT/HCPCS: 36415; 80053; 81001; 81025; 85025; 87086; 87088; 87210; 99283; A9270

== ENCOUNTER 2023-03-22 12:21 | Outpatient (CLI) | payer OTHER, SELFPAY ==
--- NOTE | ~2023-03-22 | CT_ITS ---
Non-contrast CT scan of the Abdomen and Pelvis Clinical indication: Hematuria, flank pain Technique: 2.5 mm axial scans were obtained through the abdomen and pelvis without intravenous or or al contrast. Dose reduction technique was used on this scan by utilizing automated exposure control a nd iterative reconstruction technique. The dose-length product (DLP) was 890.27 mGy-cm. COMPARISON: 01/05/2020 Findings: Images through the lung bases reveal no abnormalities. There is no evidence of renal or ureteral calculi. The kidneys and the ureters are nondilated. The liver, spleen, pancreas, and adrenals appear normal. Cholecystectomy clips are present. There is no aortic aneurysm. There is no evidence of bowel obstruction. Images through the pelvis were performed. There is no evidence of ascites or lymphadenopathy. Urinary bladder unremarkable. No adnexal mass evident. Impression: No significant abnormality seen. No etiology for hematuria identified. Reviewed, dictated and finalized at [facility]. Impression: No significant abnormality seen. No etiology for hematuria identified.
== END 2023-03-22 12:22 | disposition home or self-care (01) ==
PROVIDERS: PCP Internal Medicine; Visit Provider Internal Medicine
DX: R10.9 Unspecified abdominal pain (principal); R31.9 Hematuria, unspecified
CPT/HCPCS: 74176

== ENCOUNTER 2023-05-19 12:26 | Outpatient (CLI) | payer OTHER, SELFPAY ==
--- NOTE | ~2023-05-19 | MR_ITS ---
MRI of the lumbar spine Clinical History: Radiculopathy Technique: Axial T2-weighted images, and sagittal T1-weighted, T2-weighted, and and T2 fat-sat images were acquired. Findings: There is no fracture or subluxation of the lumbar spine. Vertebral bodies maintain normal h eight and alignment. No suspicious bone marrow signal abnormality seen. At L1-L2, L2-L3, L3-L4, there is no disc bulge or herniation. There are mild to moderate facet joint degenerative changes at these levels. No spinal canal stenosis or neural foraminal narrowing at these levels. At L4-L5, there is minimal disc bulge with mild to moderate facet arthropathy. No central canal steno sis. There is mild bilateral neural foraminal narrowing. At L5-S1, there is no significant disc bulge or herniation. There is moderate facet arthropathy. No c entral canal stenosis. There is probable mild bilateral neural foraminal narrowing. Paravertebral soft tissues are unremarkable. Impression: Probable mild bilateral neural foraminal narrowing at L4-L5 and L5-S1. Reviewed, dictated and finalized at [facility]. Impression: Probable mild bilateral neural foraminal narrowing at L4-L5 and L5-S1.
--- NOTE | ~2023-05-19 | MR_ITS ---
MRI of the left hip Clinical history: Pain Technique: Coronal T1-weighted, T2-weighted, and proton-density fat-sat images, and axial T1-weighted and proton-density fat-sat images were acquired through the pelvis. Coronal T2-weighted images and c oronal, axial, and sagittal proton-density fat-sat images were acquired through the left hip. Findings: There is no fracture, avascular necrosis, or transient osteoporosis of either hip. Bone mar row signals the proximal femora and visualized pelvic bones are unremarkable. Bilateral hip joint spa isaiah are preserved without significant degenerative change. No joint effusion seen. No left acetabular labral tear identified. Visualized musculature about the pelvis and left hip is unremarkable. No muscle atrophy or edema. Vis ualized tendons are intact. No soft tissue mass or fluid collection seen. No evidence for bursitis. IMPRESSION: Unremarkable exam. Reviewed, dictated and finalized at [facility]. IMPRESSION: Unremarkable exam.
== END 2023-05-19 12:27 | disposition home or self-care (01) ==
LOC: ANHIMG 12:28
PROVIDERS: PCP Internal Medicine; Visit Provider Internal Medicine
DX: M25.552 Pain in left hip (principal)
CPT/HCPCS: 72148; 73721

== ENCOUNTER 2023-05-27 16:37 | Outpatient (RCR) | payer OTHER, SELFPAY ==
--- NOTE | 2023-05-27 17:39 | OPREHPOC ---
Outpatient Therapy Plan of Care This is a Multidisciplinary Plan of Care that may contain components documented by all disciplines (PT, OT, and ST.) PT Problem 1 PT Problem #1 Knowledge Deficit PT Goal 1 Goal Patient to report independence with HEP Target Visit 5 PT Problem 2 PT Problem #2 Pain PT Goal 1 Goal 1. Patient to report highest pain at 4/10 2. Patient to report ability to work with no increase in pain Target Visit 10 PT Problem 3 PT Problem #3 Impaired Strength PT Goal 1 Goal Patient to demonstrate 5/5 B LE strength and core strength to return to lifting for work and home tasks at [employer] [employer]. Target Visit 10 PT Problem 4 PT Problem #4 Impaired Functional Mobil PT Goal 1 Goal 1. Patient to score 20% improvement on LISETTE 2. Patient to report ability to get out of car with no increase in pain 3. Patient to report ability to stand for >30 min with no increase in pain Target Visit 10
--- NOTE | 2023-05-27 17:39 | PTOPEVAL1 ---
Assessment and note entered by Manjula Espinal DPT Evaluation Information Assessment Status Evaluation Diagnosis low back and L hip pain Onset 05/22/23 Subjective Information Patient reports that she is having low back and L hip pain. She reports MRI shows a pinched nerve in the low back. She reports pain started in June 2022 while she was laying pavers while sitting on the ground. Pain is located at lateral hip and into glute Patient reports she has difficulty with standing up from chair, driving from long periods of time and completing house hold tasks. She works as a veterinary practitioner. Reported Pain Level Pain Score 5,5: Self Report Assessment PT Clinical Summary Patient is a 37 year old female who presents to PT with low back and L hip pain. Patient demonstrates decreased B LE strength, decreased core strength and impaired posture limiting her ability to sit in the car to drive, get into and out the car, and perform house hold tasks. Patient would benefit from continued skilled PT to address impairments and return to PLOF. Plan of Care Interventions Electrical Stimulation,Gait Training,Hot Pack/Cold Pack,Manual Therapy,Mechanical Traction,Neuro Re- education,Patient/Caregiver Educati,Therapeutic Activities,Therapeutic Exercise PT Services Indicated Yes Treatment Frequency and 2x weekly for 10 visits Duration These treatments will address the objective and functional deficits as defined above. The patient will be advanced safely and appropriately in order for the patient to progress towards his/her prior level of function. Additional exercises will be introduced and as well as a comprehensive home exercise program upon discharge, if needed, ?to ensure carryover of functional gains achieved in the clinic. This treatment plan has been reviewed and agreement upon by the patient.
--- NOTE | 2023-07-04 07:30 | OPREHPOC ---
Outpatient Therapy Plan of Care This is a Multidisciplinary Plan of Care that may contain components documented by all disciplines (PT, OT, and ST.) PT Problem 1 PT Problem #1 Knowledge Deficit PT Goal 1 Goal Patient to report independence with HEP Target Visit 5 Progress Met Comment goal met, continue to progress HEP PT Problem 2 PT Problem #2 Pain PT Goal 1 Goal 1. Patient to report highest pain at 4/10 2. Patient to report ability to work with no increase in pain Target Visit 10 Progress Not Met Comment continue to address PT Problem 3 PT Problem #3 Impaired Strength PT Goal 1 Goal Patient to demonstrate 5/5 B LE strength and core strength to return to lifting for work and home tasks at [employer]. Target Visit 10 Progress Partially Met Comment continue to address PT Problem 4 PT Problem #4 Impaired Functional Mobil PT Goal 1 Goal 1. Patient to score 20% improvement on LISETTE 2. Patient to report ability to get out of car with no increase in pain 3. Patient to report ability to stand for >30 min with no increase in pain Target Visit 10 Progress Partially Met Comment goal 2 met, continue to address goals 1 and 3
--- NOTE | 2023-07-04 07:30 | PTOPREEVAL ---
Assessment and note entered by JT File, PT Evaluation Information Assessment Status Re-evaluation Diagnosis low back and L hip pain Onset 05/22/23 Subjective Information Patient reports high pain levels present today in both the back and L hip. Patient reports improved ability to ambulate, since starting PT noting she walks less often with a limp. She is a aircraft armament mechanic for work, but is still unable to lift heavy items and has difficulty bending over, so she now delegates tasks to others more but would prefer to return to doing more active work. Patent notes that pain levels feel better following stretches she performs with HEP. She continues to have pain with bending forward and standing up from seated position, as well as standing for longer periods of time. She has no follow up appointment with the doctor. Reported Pain Level Pain Score 8,8: Self Report Assessment PT Clinical Summary Mrs. Bautista has attended 10 visits of skilled PT to address LBP and L hip pain making progress towards goals. Patient demonstrates improved LE flexibility, as well as slight improvement in strength. She currently has 30% functional decline as assessed by the Oswestry, decreasing from 44% at the initial assessment. Patient reports improved ability to ambulate throughout the day, but continues to have difficulty with bending forward and lifting heavy equipment that limits her from performing normal duties at home and work . Patient would benefit from continued skilled PT to address goals and remaining LE/core strength and flexibility deficits as well as pain levels to help improve quality of life and ability to get back to activities and lifting/work she enjoys. Plan of Care Interventions Electrical Stimulation,Gait Training,Hot Pack/Cold Pack,Manual Therapy,Mechanical Traction,Neuro Re- education,Patient/Caregiver Educati,Therapeutic Activities,Therapeutic Exercise PT Services Indicated Yes Treatment Frequency and continue POC 2x weekly for additional 6 visits Duration These treatments will address the objective and functional deficits as defined above. The patient will be advanced safely and appropriately in order for the patient to progress towards his/her prior level of function. Additional exercises will be introduced and as well as a comprehensive home exercise program upon discharge, if needed, ?to ensure carryover of functional gains achieved in the clinic. This treatment plan has been reviewed and agreement upon by the patient.
--- NOTE | 2023-07-18 16:57 | OPREHPOC ---
Outpatient Therapy Plan of Care This is a Multidisciplinary Plan of Care that may contain components documented by all disciplines (PT, OT, and ST.) PT Problem 1 PT Problem #1 Knowledge Deficit PT Goal 1 Goal Patient to report independence with HEP Target Visit 5 Progress Met Comment goal met, continue to progress HEP PT Problem 2 PT Problem #2 Pain PT Goal 1 Goal 1. Patient to report highest pain at 4/10 2. Patient to report ability to work with no increase in pain Target Visit 10 Progress Not Met Comment continue to address PT Problem 3 PT Problem #3 Impaired Strength PT Goal 1 Goal Patient to demonstrate 5/5 B LE strength and core strength to return to lifting for work and home tasks at [facility]. Target Visit 10 Progress Partially Met Comment continue to address PT Problem 4 PT Problem #4 Impaired Functional Mobil PT Goal 1 Goal 1. Patient to score 20% improvement on LISETTE 2. Patient to report ability to get out of car with no increase in pain 3. Patient to report ability to stand for >30 min with no increase in pain Target Visit 10 Progress Not Met Comment goal 2 met, continue to address goals 1 and 3
--- NOTE | 2023-07-18 16:57 | PTOPDC ---
Assessment and note entered by JT File, PT Evaluation Information Assessment Status Discharge Diagnosis low back and L hip pain Onset 05/22/23 Subjective Information patient reports he back is better but reports she continues to have horrible shooting pains in the pelvis/hip. she reports her hip looks great on xray. she reports her PCP is referring her to an ortho. she reports she has pain with sitting, standing, walking. she reports the pains will shoot and make her bend over in pain. Reported Pain Level Pain Score 9,0: Self Report Assessment PT Clinical Summary mrs. castillo presents to skilled PT for her 12th skilled PT visit today. she has made progressed in reducing pain in the lower back and improving lower back mobility. however, she continues to have severe L hip pain. she will be dc'd from skilled PT today with the reccomendation to see and ortho for evaluation and further testing of the L hip. Plan of Care PT Services Indicated Yes
== END 2023-07-18 16:51 | disposition home or self-care (01) ==
LOC: CHSPT 16:37
PROVIDERS: PCP Internal Medicine; Visit Provider Internal Medicine
DX: M54.50 Low back pain, unspecified (principal); M47.816 Spondylosis without myelopathy or radiculopathy, lumbar region
CPT/HCPCS: 97012; 97014; 97110; 97161; G0283

== ENCOUNTER 2023-06-14 14:51 | Outpatient (CLI) | payer OTHER, SELFPAY ==
--- NOTE | 2023-06-18 11:37 | WPDHOLTEREM ---
Holter/Event Monitor Holter/Event Monitor Date of procedure: 06/14/23 Holter/Event Procedure: 24 Hr Holter Monitor Indications: Bradycardia Conclusion: 1. 24 hour holter monitor on 06/14/23. 2. Underlying rhythm is sinus rhythm. HR range 45-135 bpm; average HR 82 bpm. HR at 45 bpm was at 05:49. 3. There are 10 premature supraventricular complexes. No supraventricular tachycardia. 4. There are 60 premature ventricular complexes. No ventricular tachycardia. 5. No sinoatrial or atrioventricular blocks. No significant pauses greater than 2 seconds. 6. Patient reports symptoms of flutter, lightheadedness, dizziness, tiredness which demonstrate sinus rhythm, HR range 79-97 bpm.
== END 2023-06-14 14:52 | disposition home or self-care (01) ==
LOC: CHSCARD 14:52
PROVIDERS: PCP Internal Medicine; Visit Provider Internal Medicine
DX: R00.1 Bradycardia, unspecified (principal)
CPT/HCPCS: 93225; 93226

== ENCOUNTER 2024-02-26 16:02 | Outpatient (CLI) | payer BC, SELFPAY ==
--- NOTE | ~2024-02-26 | XR_ITS ---
EXAMINATION: XR ankle RT 2V DATE: 02/26/2024 16:27 INDICATION: Right foot and ankle pain TECHNIQUE: 1. Anteroposterior, mortise and lateral view of the right ankle were obtained. 2. Dorsoplantar, oblique and lateral views of the right foot were obtained. COMPARISON: None. FINDINGS: Alignment of the right foot and ankle is normal. No fracture or osteochondral lesion. Small Achilles and plantar calcaneal spurs. Minimal to mild polyarticular osteoarthritis at a few of the tarsal meta tarsal and interphalangeal joints. Sclerotic bone island at the cuboid. No cortical erosions or perio steal reaction. No ankle joint effusion. The soft tissues are unremarkable. IMPRESSION: 1. 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 No acute osseous abnor mality. Reviewed, dictated and finalized at location A. IMPRESSION: 1. 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 No acute osseous abnormality.
--- NOTE | ~2024-02-26 | XR_ITS ---
EXAMINATION: XR foot RT 2V DATE: 02/26/2024 16:27 INDICATION: Right foot and ankle pain TECHNIQUE: 1. Anteroposterior, mortise and lateral view of the right ankle were obtained. 2. Dorsoplantar, oblique and lateral views of the right foot were obtained. COMPARISON: None. FINDINGS: Alignment of the right foot and ankle is normal. No fracture or osteochondral lesion. Small Achilles and plantar calcaneal spurs. Minimal to mild polyarticular osteoarthritis at a few of the tarsal meta tarsal and interphalangeal joints. Sclerotic bone island at the cuboid. No cortical erosions or perio steal reaction. No ankle joint effusion. The soft tissues are unremarkable. IMPRESSION: 1. 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 No acute osseous abnor mality. Reviewed, dictated and finalized at location [facility]. IMPRESSION: 1. 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 No acute osseous abnormality.
== END 2024-02-26 16:03 | disposition home or self-care (01) ==
LOC: CHSIMG 16:06
PROVIDERS: PCP Internal Medicine; Visit Provider Internal Medicine
DX: M79.671 Pain in right foot (principal); M19.071 Primary osteoarthritis, right ankle and foot
CPT/HCPCS: 73600; 73620

== ENCOUNTER 2024-03-18 09:32 | Outpatient (CLI) | payer BC, SELFPAY ==
--- NOTE | ~2024-03-18 | MR_ITS ---
MRI of the right foot CLINICAL HISTORY: Stress fracture TECHNIQUE: Sagittal T1-weighted and STIR images, axial proton-density and proton-density fat-sat imag es, and coronal T1-weighted and proton-density fat-sat images were acquired. FINDINGS: There is minimal marrow edema at the base of the third metatarsal, which could reflect reac tive change or stress response. No discrete fracture or stress fracture evident. Remaining bone marro w signals are unremarkable. There is mild degenerative change at the first MTP joint. Remaining joint spaces are intact. Minimal joint effusion present at the first MTP joint. Flexor and extensor tendons are intact. No intermetatarsal bursitis or Blue's neuroma. No soft tiss ue mass seen. There is a 6 mm ganglion cyst along the plantar aspect of the base of the fourth metata rsal. IMPRESSION: Minimal stress response or other nonspecific marrow edema at the base of third metatarsal. No discret e fracture/stress fracture evident. 6 mm ganglion cyst plantar to the base of the fourth metatarsal. Mild first MTP joint degenerative change. Reviewed, dictated and finalized at [facility]. IMPRESSION: Minimal stress response or other nonspecific marrow edema at the base of third metatarsal. No discrete fracture/stress fracture evident. 6 mm ganglion cyst plantar to the base of the fourth metatarsal. Mild first MTP joint degenerative change.
== END 2024-03-18 09:33 ==
PROVIDERS: PCP Internal Medicine; Visit Provider Orthopaedic Surgery
DX: M84.374A Stress fracture, right foot, initial encounter for fracture (principal); M67.471 Ganglion, right ankle and foot; M19.071 Primary osteoarthritis, right ankle and foot
CPT/HCPCS: 73718

== ENCOUNTER 2024-03-24 10:18 | Outpatient (CLI) | payer BC, SELFPAY ==
--- NOTE | 2024-03-24 11:00 | NEURO_ITS ---
Impression: # Complains of numbness of hands after taking Meloxicam. Not diabetic. # Normal Nerve Conduction Study without Carpal Tunnel Syndrome or ulnar neuropathy. # Normal needle/EMG exam. # Clinical correlation recommended. Nerve Conduction Studies Anti Sensory Summary Table Stim Site NR Peak (ms) P-T Amp (?V) Site1 Site2 Delta-P (ms) Dist (cm) Peter (m/s) Left Median Anti Sensory (2-3nd Digit) Wrist 2.7 57.6 Wrist 2-3nd Digit 2.7 14.0 52 Wrist 2.8 46.3 Wrist 2-3nd Digit 2.7 14.0 52 Right Median Anti Sensory (2-3nd Digit) Wrist 3.1 50.9 Wrist 2-3nd Digit 3.1 14.0 45 Wrist 3.0 40.9 Wrist 2-3nd Digit 3.1 14.0 45 Left Radial Anti Sensory (Base 1st Digit) Wrist 1.8 25.4 Wrist Base 1st Digit 1.8 0.0 Right Radial Anti Sensory (Base 1st Digit) Wrist 1.9 40.9 Wrist Base 1st Digit 1.9 0.0 Left Ulnar Anti Sensory (5th Digit) Wrist 2.3 67.6 Wrist 5th Digit 2.3 14.0 61 Right Ulnar Anti Sensory (5th Digit) Wrist 2.1 64.0 Wrist 5th Digit 2.1 14.0 67 Motor Summary Table Stim Site NR Onset (ms) O-P Amp (mV) Site1 Site2 Delta-0 (ms) Dist (cm) Peter (m/s) Left Median Motor (Abd Poll Brev) Wrist 3.3 2.5 Elbow Wrist 5.1 28.0 55 Elbow 8.4 2.1 Right Median Motor (Abd Poll Brev) Wrist 3.0 4.5 Elbow Wrist 5.0 29.0 58 Elbow 8.0 4.1 Left Ulnar Motor (Abd Dig Minimi) Wrist 2.1 7.0 A Elbow Wrist 4.9 30.0 61 A Elbow 7.0 6.0 Right Ulnar Motor (Abd Dig Minimi) Wrist 2.0 9.1 A Elbow Wrist 5.3 31.0 58 A Elbow 7.3 7.8 F Wave Studies NR F-Lat (ms) L-R F-Lat (ms) Left Median (Mrkrs) (Abd Poll Brev) 25.48 0.56 Right Median (Mrkrs) (Abd Poll Brev) 24.92 0.56 Left Ulnar (Mrkrs) (Abd Dig Min) 24.55 0.67 Right Ulnar (Mrkrs) (Abd Dig Min) 25.21 0.67 EMG Side Muscle Nerve Root Ins Act Fibs Amp Dur Recrt Comment Right 1stDorInt Ulnar C8-T1 Nml Nml Nml Nml Nml Right Ext Indicis Radial (Post Int) C7-8 Nml Nml Nml Nml Nml Right Ext Digitorum Radial (Post Int) C7-8 Nml Nml Nml Nml Nml Right BrachioRad Radial C5-6 Nml Nml Nml Nml Nml Right PronatorTeres Median C6-7 Nml Nml Nml Nml Nml Right Abd Poll Brev Median C8-T1 Nml Nml Nml Nml Nml Right ABD Dig Min Ulnar C8-T1 Nml Nml Nml Nml Nml Left 1stDorInt Ulnar C8-T1 Nml Nml Nml Nml Nml Left Ext Indicis Radial (Post Int) C7-8 Nml Nml Nml Nml Nml Left Ext Digitorum Radial (Post Int) C7-8 Nml Nml Nml Nml Nml Left BrachioRad Radial C5-6 Nml Nml Nml Nml Nml Left PronatorTeres Median C6-7 Nml Nml Nml Nml Nml Left Abd Poll Brev Median C8-T1 Nml Nml Nml Nml Nml Left ABD Dig Min Ulnar C8-T1 Nml Nml Nml Nml Nml MTDD
== END 2024-03-24 10:19 | disposition home or self-care (01) ==
LOC: ANHNEURO 10:22
PROVIDERS: PCP Internal Medicine; Visit Provider Internal Medicine
DX: R20.2 Paresthesia of skin (principal)
CPT/HCPCS: 95886; 95911

== ENCOUNTER 2024-09-03 16:42 | Outpatient (CLI) | payer BC, SELFPAY ==
[2024-09-03 19:40] LABS: Free T3 2.78 pg/mL (2.18-3.98); Free T4 Free Thyroxine 1.03 ng/dL (0.76-1.46); Thyroid Stimulating Hormone 1.27 uIU/mL (0.36-3.74)
== END 2024-09-03 16:43 | disposition home or self-care (01) ==
LOC: CHSLAB 16:44
PROVIDERS: PCP Internal Medicine; Visit Provider Internal Medicine
DX: E05.00 Thyrotoxicosis with diffuse goiter without thyrotoxic crisis or storm (principal)
CPT/HCPCS: 36415; 84439; 84443; 84481